=== PATIENT | female | born 1965 ===

== ENCOUNTER 2016-08-13 11:51 | Emergency (ER) | payer OTHER ==
[2016-08-13 11:59] VITALS: O2SAT 98
--- NOTE | 2016-08-13 13:05 | C.PDOC ---
History Of Present Illness 51 y/o female presents to ED with complaints of feeling depressed. Patient states for 1 month her and her were for infidelity and has now developed depressio, "bad thoughts",and loss of appetite. Patient says she thought she could overcome the depression by herself as she has overcame depression before but she couldn't and came to ED for help. Patient denies Suicidal ideation or Homicidal ideation, hallucinations or any other complaints at this time. Time Seen by Provider: 08/13/16 12:41 Chief Complaint (Nursing): Psychiatric Evaluation History Per: Patient History/Exam Limitations: no limitations Onset/Duration Of Symptoms: Days Current Symptoms Are (Timing): Still Present Suicide/Self Injury Attempted (Context): None Modifying Factor(s): None Associated Symptoms: Depression Past Medical History Reviewed: Historical Data, Nursing Documentation, Vital Signs Vital Signs: Last Vital Signs Temp 98.3 F 08/13/16 11:56 Pulse 109 H 08/13/16 11:56 Resp 20 08/13/16 11:56 BP 106/73 08/13/16 11:56 Pulse Ox 98 08/13/16 13:26 - Medical History PMH: Hypercholesterolemia Family History: States: No Known Family Hx - Social History Hx Alcohol Use: No Hx Substance Use: No - Immunization History Hx Tetanus Toxoid Vaccination: No Hx Influenza Vaccination: No Review Of Systems Except As Marked, All Systems Reviewed And Found Negative. Constitutional: Negative for: Fever Respiratory: Negative for: Shortness of Breath Gastrointestinal: Negative for: Nausea, Vomiting, Diarrhea Neurological: Negative for: Weakness, Headache Psych: Positive for: Depression. Negative for: Suicidal ideation Physical Exam - Physical Exam Appears: Non-toxic, Other (Emotional) Skin: Normal Color, Warm Head: Atraumatic, Normacephalic Oral Mucosa: Moist Extremity: Normal ROM, Capillary Refill (<2 seconds) Neurological/Psych: Oriented x3, Normal Speech, Other (Depressed ) ED Course And Treatment O2 Sat by Pulse Oximetry: 98 (RA) Pulse Ox Interpretation: Normal Medical Decision Making Medical Decision Making: Psych department called for evaluation on patient Disposition - Disposition Referrals: [facility] [Outside] Disposition: HOME/ ROUTINE Disposition Time: 14:53 Condition: FAIR Additional Instructions: Ms. Phillips, thank you for letting us take care of you today. Return to the ER if your symptoms worsen, or if any problems. Our Mental Health coordinator recommends that you follow up at the [facility]. Please follow the instructions she gave to you today. Forms: Gen Discharge Inst Yemeni, [employer] Connect (Yemeni) Print Language: BHUTANESE - POA Present On Arrival: None - Clinical Impression Clinical Impression: Major depressive disorder, single episode, unspecified - Scribe Statement The provider has reviewed the documentation as recorded by the Pearlibedmond Murillo All medical record entries made by the Pearlibedmond were at my direction and personally dictated by me. I have reviewed the chart and agree that the record accurately reflects my personal performance of the history, physical exam, medical decision making, and the department course for this patient. I have also personally directed, reviewed, and agree with the discharge instructions and disposition.
[2016-08-13 15:24] VITALS: BP 112/81; PULSE 88; RESP 18; TEMP 98.1
== END 2016-08-13 15:23 | disposition home or self-care (01) ==
LOC: C.ER 11:51
DX: F32.9 Major depressive disorder, single episode, unspecified (principal)

== ENCOUNTER 2017-03-09 11:12 | Emergency (ER) | payer MEDICAID, OTHER ==
[2017-03-09 11:33] VITALS: BMI 28.3
[2017-03-09] MEDS ORDERED: Aluminum Hydroxide/Magnesium Hydroxide Susp (30 mL) PO STA (12:29)
[2017-03-09] MEDS ORDERED: Belladonna-Phenobarbital PO STA (12:29)
[2017-03-09] MEDS ORDERED: Sodium Chloride 0.9% 1,000 ML IV ONE (12:29)
[2017-03-09] MEDS ORDERED: Alum-Mag Hydrox-Simethicone Susp (30 mL) ONE (12:37)
[2017-03-09] MEDS ORDERED: Belladonna-Phenobarbital ONE (12:37)
[2017-03-09] MEDS ORDERED: Sodium Chloride 0.9% 1,000 ML ONE (12:38)
[2017-03-09 12:57] LABS: SQUAMOUS EPITHIAL 6 /hpf (0-5); URINE BILIRUBIN NEGATIVE (NEGATIVE); URINE BLOOD NEGATIVE (NEGATIVE); URINE CLARITY Hazy (Clear); URINE COLOR Yellow (YELLOW); URINE GLUCOSE (UA) NORMAL (Normal); URINE LEUKOCYTE ESTERASE NEG Leu/uL (Negative); URINE NITRATE NEGATIVE (NEGATIVE); URINE PROTEIN 2+ mg/dL (NEGATIVE); URINE UROBILINOGEN NORMAL mg/dL (0.2-1.0)
[2017-03-09 12:57] LABS: ALB/GLOB RATIO 1.1 (1.0-2.1); ALBUMIN 4.1 g/dL (3.5-5.0); ALT/SGPT 21 U/L (9-52); AST/SGOT 24 U/L (14-36); BLOOD UREA NITROGEN 10 mg/dL (7-17); GFR AFRICAN-AMERICAN > 60; GFR NON-AFRICAN AMERICAN > 60; LIPASE 110 U/L (23-300)
[2017-03-09 13:01] LABS: BASO # 0.1 K/uL (0.0-0.2); BASO % 0.4 % (0.0-2.0); HEMOGLOBIN 12.1 g/dL (11.0-16.0); LYMPH # 1.5 K/uL (1.0-4.3); LYMPH % 8.4 % (20.0-40.0); MEAN CELL VOLUME 79.4 fL (81.0-99.0); MEAN CORPUSCULAR HEMOGLOBIN 26.6 pg (27.0-31.0); MEAN CORPUSCULAR HGB CONC 33.6 g/dL (33.0-37.0); MEAN PLATELET VOLUME 8.2 fL (7.2-11.7); MONO # 0.8 K/uL (0.0-0.8); MONO % 4.4 % (0.0-10.0); NEUT # 15.7 K/uL (1.8-7.0); NEUT % 86.8 % (50.0-75.0); PLATELET COUNT 447 K/uL (130-400); RBC 4.54 Mil/uL (3.80-5.20); RED CELL DISTRIBUTION WIDTH 13.3 % (11.5-14.5); WHITE BLOOD COUNT 18.1 K/uL (4.8-10.8)
[2017-03-09 13:09] LABS: B-TYPE NATRIURETIC PEPTIDE 162 pg/mL (0-900)
--- NOTE | 2017-03-09 13:11 | C.PDOC ---
History Of Present Illness 51 year old female with PMHx of lumbar scoliosis presents to the ED accompanied by her daughter for evaluation of abdominal pain that started today at approximately at 03:00 am. Patient states having multiple episodes of vomiting associated with chills, subjective fever. Patient denies back pain, weakness, numbness, diarrhea, constipation, cough, chills, fever. Time Seen by Provider: 03/09/17 12:12 Chief Complaint (Nursing): Abdominal Pain History Per: Patient, Family History/Exam Limitations: no limitations Onset/Duration Of Symptoms: Hrs Current Symptoms Are (Timing): Still Present Severity: Moderate Location Of Pain/Discomfort: Diffuse Radiation Of Pain To:: None Quality Of Discomfort: Other (Colic) Associated Symptoms: Vomiting. denies: Fever, Diarrhea, Back Pain, Constipation Exacerbating Factors: None Alleviating Factors: None Recent travel outside of the [place]: No Additional History Per: Patient Abnormal Vaginal Bleeding: No Past Medical History Reviewed: Historical Data, Nursing Documentation, Vital Signs Vital Signs: Last Vital Signs Temp 98.1 F 03/09/17 15:09 Pulse 68 03/09/17 15:09 Resp 20 03/09/17 15:09 BP 122/72 03/09/17 15:09 Pulse Ox 99 03/09/17 15:42 - Medical History PMH: Hypercholesterolemia Denies: Diabetes, Hepatitis, HIV, HTN, Seizures, Sexually Transmitted Disease Surgical History: No Surg Hx Family History: States: Unknown Family Hx - Social History Hx Alcohol Use: No Hx Substance Use: No - Immunization History Hx Tetanus Toxoid Vaccination: No Hx Influenza Vaccination: No Review Of Systems Constitutional: Negative for: Fever, Chills Respiratory: Negative for: Cough, Shortness of Breath Gastrointestinal: Positive for: Vomiting, Abdominal Pain. Negative for: Nausea , Diarrhea, Constipation Genitourinary: Negative for: Dysuria, Hematuria Skin: Negative for: Rash Neurological: Negative for: Weakness, Numbness, Headache Physical Exam - Physical Exam Appears: Non-toxic, In Acute Distress Skin: Normal Color, Warm, Dry Head: Atraumatic, Normacephalic Eye(s): bilateral: Normal Inspection Nose: No Discharge, No Deformity Oral Mucosa: Moist Neck: Normal ROM, Supple Chest: Symmetrical Cardiovascular: Rhythm Regular, No Murmur Respiratory: Normal Breath Sounds, No Rales, No Rhonchi, No Wheezing Gastrointestinal/Abdominal: Soft, Tenderness, Guarding, No Rebound Extremity: Normal ROM, No Pedal Edema, No Calf Tenderness, No Deformity, No Swelling Neurological/Psych: Oriented x3, Normal Speech, Normal Cognition ED Course And Treatment - Laboratory Results Result Diagrams: 03/09/17 12:36 03/09/17 12:36 O2 Sat by Pulse Oximetry: 99 (On RA) Pulse Ox Interpretation: Normal - Other Rad Obstructive series X-Ray X-Ray: Viewed By Me, Read By Radiologist Interpretation: PROCEDURE: Radiographs of the chest and abdomen (obstructive series). HISTORY: Abdominal pain. COMPARISON: No prior. TECHNIQUE: AP radiograph of the chest, with upright and supine radiographs of the abdomen. FINDINGS: CHEST: Lungs: The lungs are clear. Cardiovascular: Normal size heart. No pulmonary vascular congestion. Pleura: No pleural fluid. No pneumothorax. Other findings: None. ABDOMEN AND PELVIS: Bowel: There is moderate amount of stool in the ascending and proximal transverse colon. No evidence of mechanical obstruction. Free air: None. Bones: There is levoscoliosis in the lumbar spine. Other findings: None. IMPRESSION: Moderate stool burden in the ascending and proximal transverse colon. No evidence of bowel obstruction. Clear lungs. - CT Scan/US Abd/pelvis CT Other Rad Studies (CT/US): Read By Radiologist, Radiology Report Reviewed CT/US Interpretation: PROCEDURE: CT Abdomen and Pelvis without intravenous contrast. HISTORY: abd pain. COMPARISON: None. TECHNIQUE: Technique. Contrast Dose: None. Radiation dose: Total exam DLP = 1045 mGy-cm. This CT exam was performed using one or more of the following dose reduction techniques : Automated exposure control, adjustment of the mA and/or kV according to patient size, and/or use of iterative reconstruction technique. FINDINGS: LOWER THORAX: Left basal calcified granuloma. Partially visualized coronary artery calcifications. LIVER: Unremarkable. No gross lesion or ductal dilatation. GALLBLADDER AND BILE DUCTS: Distended gallbladder. No gross gallstones. Common bile duct a pancreatic head appears prominent. PANCREAS: Common bile duct prominence - pancreatic head. SPLEEN: Unremarkable. ADRENALS : Unremarkable. No mass. KIDNEYS AND URETERS: 5 to 6 mm left lower renal pole calculus nonobstructing. No hydronephrosis. No gross masses noted on this noncontrast study. VASCULATURE: Short segmental atherosclerotic vascular ossifications -descending abdominal aorta. . No aortic aneurysm. BOWEL: Unremarkable. No obstruction. No gross mural thickening. APPENDIX: Unremarkable. Normal appendix. PERITONEUM: Unremarkable. No free fluid. No free air. LYMPH NODES: Unremarkable. No enlarged lymph nodes. BLADDER: Unremarkable. REPRODUCTIVE: Unremarkable. BONES: Developmental variation - inferior lumbar block vertebrae -sacral cysts digested. OTHER FINDINGS: None. IMPRESSION: Left lower renal pole nonobstructing 5 to 6 mm calculus. No hydronephrosis no hydroureter. Distended gallbladder. Common bile duct prominence pancreatic head. Evaluation regarding any potential pancreatic masses -no gross appreciated. No gross calculi in common bile duct appreciated. Follow-up recommended -initial right upper quadrant ultrasound attention to gallbladder common bile duct and pancreatic head recommended. Additional CT pancreatic protocol subsequent imaging -to be determined Medical Decision Making Medical Decision Making: Impression : Abdominal pain Plan: * CT abd/pelvis * Labs * Obstructive series X-ray * UA * 1 yab PO * Maalox 30 ml PO * Morphine 2 mg IVP * Pepcid 20 mg IVP * IV fluids Disposition Counseled Patient/Family Regarding: Studies Performed, Need For Followup, Rx Given - Disposition Disposition: HOME/ ROUTINE Disposition Time: 15:14 Condition: STABLE Prescriptions: Docusate Sodium [Colace] 100 mg PO BID #20 capsule Phosphate Enema [Fleet Enema 135 Ml] 135 ml RC DAILY #2 nma Psyllium Husk/Aspartame [Metamucil Fiber Singles Packet] 3.4 gm PO DAILY #10 powd.pack Instructions: Constipation (ED) Forms: [facility] (Czech), Gen Discharge Inst Czech - POA Present On Arrival: None - Clinical Impression Clinical Impression: Constipation - Scribe Statement The provider has reviewed the documentation as recorded by the Scribe Fletcher Hernandez All medical record entries made by the Scribe were at my direction and personally dictated by me. I have reviewed the chart and agree that the record accurately reflects my personal performance of the history, physical exam, medical decision making, and the department course for this patient. I have also personally directed, reviewed, and agree with the discharge instructions and disposition.
[2017-03-09 13:21] LABS: BANDS 2 % (0-2); LYMPHOCYTE 6 % (20-40); MONOCYTE 2 % (0-10); NEUTROPHIL 90 % (50-75); TOTAL CELLS COUNTED 100
[2017-03-09 13:22] LABS: PLATELET ESTIMATE SLIGHTLY INCREASED (NORMAL); STOMATOCYTES SLIGHT
--- NOTE | 2017-03-09 13:35 | CT ---
PROCEDURE: CT Abdomen and Pelvis without intravenous contrast HISTORY: abd pain COMPARISON: None. TECHNIQUE: Technique. Contrast Dose: None Radiation dose: Total exam DLP = 1045 mGy-cm. This CT exam was performed using one or more of the following dose reduction techniques: Automated exposure control, adjustment of the mA and/or kV according to patient size, and/or use of iterative reconstruction technique. FINDINGS: LOWER THORAX: Left basal calcified granuloma. Partially visualized coronary artery calcifications LIVER: Unremarkable. No gross lesion or ductal dilatation. GALLBLADDER AND BILE DUCTS: Distended gallbladder. No gross gallstones. Common bile duct a pancreatic head appears prominent. PANCREAS: Common bile duct prominence - pancreatic head. SPLEEN: Unremarkable. ADRENALS: Unremarkable. No mass. KIDNEYS AND URETERS: 5 to 6 mm left lower renal pole calculus nonobstructing. No hydronephrosis. No gross masses noted on this noncontrast study. VASCULATURE: Short segmental atherosclerotic vascular ossifications -descending abdominal aorta. . No aortic aneurysm. BOWEL: Unremarkable. No obstruction. No gross mural thickening. APPENDIX: Unremarkable. Normal appendix. PERITONEUM: Unremarkable. No free fluid. No free air. LYMPH NODES: Unremarkable. No enlarged lymph nodes. BLADDER: Unremarkable. REPRODUCTIVE: Unremarkable. BONES: Developmental variation -inferior lumbar block vertebrae -sacral cysts digested OTHER FINDINGS: None. IMPRESSION: Left lower renal pole nonobstructing 5 to 6 mm calculus. No hydronephrosis no hydroureter Distended gallbladder. Common bile duct prominence pancreatic head. Evaluation regarding any potential pancreatic masses -no gross appreciated. No gross calculi in common bile duct appreciated. Follow-up recommended -initial right upper quadrant ultrasound attention to gallbladder common bile duct and pancreatic head recommended. Additional CT pancreatic protocol subsequent imaging -to be determined
--- NOTE | 2017-03-09 13:43 | RAD ---
PROCEDURE: Radiographs of the chest and abdomen (obstructive series) HISTORY: Abdominal pain COMPARISON: No prior. TECHNIQUE: AP radiograph of the chest, with upright and supine radiographs of the abdomen. FINDINGS: CHEST: Lungs: The lungs are clear. Cardiovascular: Normal size heart. No pulmonary vascular congestion. Pleura: No pleural fluid. No pneumothorax. Other findings: None. ABDOMEN AND PELVIS: Bowel: There is moderate amount of stool in the ascending and proximal transverse colon. No evidence of mechanical obstruction. Free air: None. Bones: There is levoscoliosis in the lumbar spine. Other findings: None. IMPRESSION: Moderate stool burden in the ascending and proximal transverse colon. No evidence of bowel obstruction. Clear lungs.
[2017-03-09 15:10] VITALS: BP 122/72; PULSE 68; RESP 20; TEMP 98.1
[2017-03-09 15:17] VITALS: O2SAT 99
== END 2017-03-09 15:40 | disposition home or self-care (01) ==
LOC: C.ER 11:12
DX: K59.00 Constipation, unspecified (principal); E78.00 Pure hypercholesterolemia, unspecified
CPT/HCPCS: 74022; 74176; 80053; 81001; 83690; 83880; 84484; 85025; 96361; 96374; 96375; 99284; J1885; J2270; J2405; J7040

== ENCOUNTER 2017-03-15 13:09 | Inpatient (IN) | payer OTHER ==
[2017-03-15 13:09] VITALS: BMI 28.3
[2017-03-15] MEDS ORDERED: Sodium Chloride 0.9% 1,000 ML IV ONE (15:46)
[2017-03-15] MEDS ORDERED: Sodium Chloride 0.9% 1,000 ML ONE (16:01)
[2017-03-15 16:03] LABS: BASO # 0.1 K/uL (0.0-0.2); BASO % 0.8 % (0.0-2.0); EOS # 0.2 K/uL (0.0-0.7); EOS % 1.5 % (0.0-4.0); HEMOGLOBIN 11.7 g/dL (11.0-16.0); LYMPH # 3.2 K/uL (1.0-4.3); LYMPH % 25.2 % (20.0-40.0); MEAN CELL VOLUME 80.4 fL (81.0-99.0); MEAN CORPUSCULAR HEMOGLOBIN 26.6 pg (27.0-31.0); MEAN CORPUSCULAR HGB CONC 33.1 g/dL (33.0-37.0); MEAN PLATELET VOLUME 7.5 fL (7.2-11.7); MONO # 0.9 K/uL (0.0-0.8); MONO % 7.4 % (0.0-10.0); NEUT # 8.3 K/uL (1.8-7.0); NEUT % 65.1 % (50.0-75.0); RBC 4.39 Mil/uL (3.80-5.20); WHITE BLOOD COUNT 12.8 K/uL (4.8-10.8)
[2017-03-15 16:14] LABS: INR 1.2; PROTHROMBIN TIME 13.1 SECONDS (9.7-12.2)
--- NOTE | 2017-03-15 16:17 | C.PDOC ---
History Of Present Illness 51 y/o female, sent by Dr. Woods, presents to the ER for right upper quadrant abdominal pain. Patient states that she was recently seen here and and she was discharged with CT which showed a distended galbladder. Patient denies having any fever, nausea, and vomiting. Time Seen by Provider: 03/15/17 15:29 Chief Complaint (Nursing): Abdominal Pain History Per: Patient History/Exam Limitations: no limitations Onset/Duration Of Symptoms: Days Current Symptoms Are (Timing): Still Present Severity: Moderate Past Medical History Reviewed: Historical Data, Nursing Documentation, Vital Signs Vital Signs: Last Vital Signs Temp 98.7 F 03/15/17 14:01 Pulse 83 03/15/17 14:01 Resp 18 03/15/17 14:01 BP 109/72 03/15/17 14:01 Pulse Ox 99 03/15/17 16:23 - Medical History PMH: Hypercholesterolemia Denies: Diabetes, Hepatitis, HIV, HTN, Seizures, Sexually Transmitted Disease Surgical History: No Surg Hx Family History: States: No Known Family Hx - Social History Hx Alcohol Use: No Hx Substance Use: No - Immunization History Hx Tetanus Toxoid Vaccination: No Hx Influenza Vaccination: No Review Of Systems Except As Marked, All Systems Reviewed And Found Negative. Constitutional: Negative for: Fever, Chills Gastrointestinal: Positive for: Abdominal Pain. Negative for: Nausea, Vomiting Physical Exam - Physical Exam Appears: Non-toxic, No Acute Distress Skin: Normal Color, Warm Head: Atraumatic, Normacephalic Eye(s): bilateral: Normal Inspection, PERRL Nose: Normal Oral Mucosa: Moist Neck: Supple Chest: Symmetrical Cardiovascular: Rhythm Regular Respiratory: Normal Breath Sounds, No Accessory Muscle Use, No Rales, No Rhonchi , No Wheezing Gastrointestinal/Abdominal: Normal Exam, Soft, Tenderness (RUQ tenderness), No Guarding, No Rebound Extremity: Normal ROM Neurological/Psych: Oriented x3, Normal Speech, Normal Cognition, Normal Motor, Normal Sensation ED Course And Treatment - Laboratory Results Result Diagrams: 03/15/17 15:54 03/15/17 15:54 O2 Sat by Pulse Oximetry: 99 (RA) Pulse Ox Interpretation: Normal Medical Decision Making Medical Decision Making: Impression: RUQ Abdominal Pain-suspect cholecystitis - Plan: --Labs --Urinalysis --US-Abdomen pt reassesed: pt with us shows possibl echole. antibiotics ordered, dr wiseman accepts resident assistant cna bedside request or tommorow. Disposition - Disposition Disposition: HOSPITALIZED Disposition Time: 18:29 Condition: STABLE - Clinical Impression Clinical Impression: Cholecystitis, UTI (urinary tract infection) - Scribe Statement The provider has reviewed the documentation as recorded by the Scribe Patricia Dada Provider Attestation: All medical record entries made by the Scribe were at my direction and personally dictated by me. I have reviewed the chart and agree that the record accurately reflects my personal performance of the history, physical exam, medical decision making, and the department course for this patient. I have also personally directed, reviewed, and agree with the discharge instructions and disposition. Decision To Admit - Pt Status Changed To: Hospital Disposition Of: Inpatient - Admit Certification Admit to Inpatient:: After my assessment, the patient will require hospitalization for at least two midnights. This is because of the severity of symptoms shown, intensity of services needed, and/or the medical risk in this patient being treated as an outpatient. - InPatient: Physician Admission Certification:: needs iv anbitiocsi or for myra - . Bed Request Type: Regular Admitting Physician: Ciaran Wiseman Jr. Patient Diagnosis: Cholecystitis, UTI (urinary tract infection)
[2017-03-15 16:20] LABS: ALBUMIN 4.2 g/dL (3.5-5.0); ALT/SGPT 23 U/L (9-52); AST/SGOT 16 U/L (14-36); BILIRUBIN,DIRECT 0.3 mg/dL (0.0-0.4); BLOOD UREA NITROGEN 8 mg/dL (7-17); CALCIUM 8.9 mg/dl (8.6-10.4); GFR AFRICAN-AMERICAN > 60; GFR NON-AFRICAN AMERICAN > 60; HCG,QUALITATIVE URINE NEGATIVE (NEGATIVE); LIPASE 110 U/L (23-300)
[2017-03-15 16:22] LABS: SQUAMOUS EPITHIAL 10 /hpf (0-5); URINE BILIRUBIN NEGATIVE (NEGATIVE); URINE BLOOD NEGATIVE (NEGATIVE); URINE CLARITY Hazy (Clear); URINE COLOR Yellow (YELLOW); URINE GLUCOSE (UA) NORMAL (Normal); URINE LEUKOCYTE ESTERASE NEG Leu/uL (Negative); URINE NITRATE POSITIVE (NEGATIVE); URINE PROTEIN NEGATIVE (NEGATIVE); URINE UROBILINOGEN NORMAL mg/dL (0.2-1.0)
[2017-03-15 16:31] LABS: URINE BACTERIA MANY (<OCC)
[2017-03-15] MEDS ORDERED: cefTRIAXone 2 GM in Sodium Chloride 0.9% 100 ML IVPB STA (16:31)
--- NOTE | 2017-03-15 16:50 | US ---
HISTORY: abd pain COMPARISON: CT abdomen and pelvis without contrast performed 03/09/17 TECHNIQUE: Sonographic evaluation of the abdomen. FINDINGS: LIVER: Measures 13.2 cm in sagittal dimension and appears unremarkable. No focal hepatic mass identified. The main portal vein appears patent with normal directional flow. No intrahepatic bile duct dilatation. GALLBLADDER: Immobile gallstone in the gallbladder neck. No gallbladder wall thickening. Positive sonographic Rollins's sign as assessed by the project financial analyst. COMMON BILE DUCT: Measures 6 mm. PANCREAS: Not well visualized. RIGHT KIDNEY: Measures 11.2 x 4.7 x 4.3cm. No obstructing calculus or hydronephrosis identified. LEFT KIDNEY: Measures lump which should by 5.8 x 5.4cm. No obstructing calculus or hydronephrosis identified. Caps 7 mm nonobstructing calculus. SPLEEN: Measures approximately 9.0 cm AORTA: Limited views appear unremarkable. IVC: Limited views appear unremarkable. OTHER FINDINGS: None. IMPRESSION: Evidence of immobile gallstone at the gallbladder neck. Positive sonographic Rollins's sign as assessed by the project financial analyst. No evidence of gallbladder wall thickening or pericholecystic edema. Correlate clinically for possibility of cholecystitis. Nonobstructing 7 mm left renal calculus.
--- NOTE | 2017-03-15 19:06 | CP.PCM.CON ---
History of Present Illness - History of Present Illness History of Present Illness: Surgery consult. The daughter is present for the conversation. Patient is a 51 y.o. female ho cholelithiasis who presents to the ED with RUQ pain. She states that it began 7 days ago, and at that time, she was vomiting yellow-green fluid, with no blood. She was admitted to [facility] and worked up for hardened stool causing obstruction. she was given morphine and stool softeners and discharged. Since then, she has had increasing RUQ pain and admitted herself to the ED tonight. She states that eating makes the pain worse and describes her pain as dull and achy. She admits to traveling to [facility] 1 year ago, with no issues after coming back. She denies any sick contacts. Patient admits to lethargy, headache, mild palpitations, mild dyspnea, naseua and constipation. She also has TTP on the RUQ of the abdomen. Imaging shows a thickened gallbladder wall and gallstones present. PMH:Hypercholesteremia, back pain, MDD and Anxiety PSH: in 1994 and 1988 Hosp:Left breast cyst FNA in 2006, self-admitted herself to [facility] [place] last July Social hx:Denies alcohol and tabacoo. Lives with 2 daughters Medications:Naproxen 500 mg q2d, tylenol 500 mg q2d, Trazadone 100 mg qd, Buspirone 50 mg qd Family hx:History of gallstones, diabetes Allergies: none Review of Systems - Constitutional Constitutional: As Per HPI, Fever, Headache, Weakness. absent: Chills - Cardiovascular Cardiovascular: As Per HPI, Dyspnea. absent: Chest Pain, Lightheadedness, Palpitations - Respiratory Respiratory: As Per HPI. absent: Cough, Dyspnea - Gastrointestinal Gastrointestinal: As Per HPI, Abdominal Pain, Constipation, Nausea, Vomiting. absent: Diarrhea - Genitourinary Genitourinary: As Per HPI. absent: Difficulty Urinating, Dysuria Past Patient History - Past Social History Smoking Status: Never Smoked - CARDIAC Hx Hypercholesterolemia: Yes Hx Hypertension: No - PULMONARY Hx Tuberculosis: No - NEUROLOGICAL Hx Seizures: No - HEMATOLOGICAL/ONCOLOGICAL Hx Human Immunodeficiency Virus (HIV): No - MUSCULOSKELETAL/RHEUMATOLOGICAL Hx Back Pain: Yes - GENITOURINARY/GYNECOLOGICAL Hx Sexually Transmitted Disorders: No - PSYCHIATRIC Hx Substance Use: No - SURGICAL HISTORY Hx Section: Yes (x 2) - ANESTHESIA Hx Anesthesia: Yes Hx Anesthesia Reactions: No Meds Allergies/Adverse Reactions: Allergies Allergy/AdvReac Type Severity Reaction Status Date / Time No Known Allergies Allergy Verified 03/09/17 11:32 Physical Exam - Head Exam Head Exam: NORMAL INSPECTION - Eye Exam Eye Exam: Normal appearance - Respiratory Exam Respiratory Exam: NORMAL BREATHING PATTERN - Cardiovascular Exam Cardiovascular Exam: REGULAR RHYTHM, RRR, +S1, +S2 - GI/Abdominal Exam GI & Abdominal Exam: Normal Bowel Sounds, Tenderness. absent: Distended, Firm, Guarding, Rebound, Rigid Additional comments: TTP in RUQ. illicits pain Results - Vital Signs Recent Vital Signs: Last Vital Signs Temp 98.4 F 03/15/17 18:51 Pulse 95 H 03/15/17 18:51 Resp 18 03/15/17 18:51 BP 111/68 03/15/17 18:51 Pulse Ox 98 03/15/17 18:51 - Labs Result Diagrams: 03/15/17 15:54 03/15/17 15:54 Labs: Laboratory Results - last 24 hr 03/15/17 03/15/17 03/15/17 15:54 15:54 15:54 WBC 12.8 H RBC 4.39 Hgb 11.7 Hct 35.3 MCV 80.4 L MCH 26.6 L MCHC 33.1 RDW 13.0 Plt Count 534 H MPV 7.5 Neut % (Auto) 65.1 Lymph % (Auto) 25.2 Edwards % (Auto) 7.4 Eos % (Auto) 1.5 Baso % (Auto) 0.8 Neut # 8.3 H Lymph # 3.2 Edwards # 0.9 H Eos # 0.2 Baso # 0.1 PT 13.1 H INR 1.2 APTT 32 Sodium Potassium Chloride Carbon Dioxide Anion Gap BUN Creatinine Est GFR ( Amer) Est GFR (Non-Af Amer) Random Glucose Calcium Total Bilirubin Direct Bilirubin AST ALT Alkaline Phosphatase Total Protein Albumin Globulin Albumin/Globulin Ratio Lipase Urine Color Yellow Urine Clarity Hazy Urine pH 8.0 Ur Specific Hamilton 1.014 Urine Protein Negative Urine Glucose (UA) Normal Urine Ketones Trace Urine Blood Negative Urine Nitrate Positive H Urine Bilirubin Negative Urine Urobilinogen Normal Ur Leukocyte Esterase Neg Urine WBC (Auto) 1 Urine RBC (Auto) 3 Ur Squamous Epith Cells 10 H Urine Bacteria Many H Urine HCG, Qual Negative 03/15/17 15:54 WBC RBC Hgb Hct MCV MCH MCHC RDW Plt Count MPV Neut % (Auto) Lymph % (Auto) Edwards % (Auto) Eos % (Auto) Baso % (Auto) Neut # Lymph # Edwards # Eos # Baso # PT INR APTT Sodium 131 L Potassium 3.8 Chloride 95 L Carbon Dioxide 26 Anion Gap 14 BUN 8 Creatinine 0.5 L Est GFR ( Amer) > 60 Est GFR (Non-Af Amer) > 60 Random Glucose 104 Calcium 8.9 Total Bilirubin 0.5 Direct Bilirubin 0.3 AST 16 ALT 23 Alkaline Phosphatase 76 Total Protein 8.5 H Albumin 4.2 Globulin 4.3 H Albumin/Globulin Ratio 1.0 Lipase 110 Urine Color Urine Clarity Urine pH Ur Specific Hamilton Urine Protein Urine Glucose (UA) Urine Ketones Urine Blood Urine Nitrate Urine Bilirubin Urine Urobilinogen Ur Leukocyte Esterase Urine WBC (Auto) Urine RBC (Auto) Ur Squamous Epith Cells Urine Bacteria Urine HCG, Qual Assessment & Plan - Assessment and Plan (Free Text) Assessment: Symptomatic cholelithiasis vs acute cholecystitis Plan: OR tomorrow NPO past midnight IV fluids Dilaudid for pain Ondansetron for n/v Tylenol for fever Ceftriaxone for abx prophylaxis DW with Dr. Pat
[2017-03-15] MEDS: Lactated Ringer's 1,000 ML IV SCH (19:58)
[2017-03-15] MEDS ORDERED: Pneumococcal 23-Valent Vaccine IM ONE (20:30)
--- NOTE | 2017-03-15 21:08 | CP.PCM.HP ---
History of Present Illness - History of Present Illness History of Present Illness: H&P for Dr. Cruz's Service: CC: " My upper belly hurts" HPI: Patient is a 51 year old female, with PMHx of cholelithiasis, anxiety, depression, DDD, and scoliosis, who presents to [facility] ED c/o RUQ pain. Patient states that pain began one week ago, starting in her epigastric area than spreading to her RUQ. At that time, she vomited yellow-green fluid "three to four times with no blood." When the pain did not cease she came to [facility] ED on 03/09/17. Pt reports having CT which showed "distended gallbladder" and was diagnosed with constipation, given morphine and stool softeners, and discharged. Since discharge, pt has had worsening non-radiating RUQ pain, "10/10 " in severity, that skedmond describes as a "twisting sensation" that "comes and goes." Pain is made worse with eating, especially fatty foods, but now all foods are intolerable. Patient denies any sick contacts. Patient denies having any fever, nausea, and vomiting. PMH: Hypercholesteremia, back pain, MDD and Anxiety PSH: in 1994 and 1988, Left breast cyst fluid extraction 2006 Social hx:Denies alcohol and tobacoo. Lives with 2 daughters. Unemployed. Medications:Naproxen 500 mg q2d, tylenol 500 mg q2d, Trazadone 100 mg qd, Buspirone 50 mg qd Family hx:History of gallstones, diabetes Allergies: none Present on Admission - Present on Admission Any Indicators Present on Admission: No History of DVT/PE: No History of Uncontrolled Diabetes: No Review of Systems - Constitutional Constitutional: absent: Chills, Fever - EENT Eyes: absent: Change in Vision Ears: absent: Ear Discharge, Ear Pain Nose/Mouth/Throat: absent: Nasal Congestion, Dry Mouth, Sore Throat - Cardiovascular Cardiovascular: absent: Chest Pain, Dyspnea, Leg Edema - Respiratory Respiratory: absent: Cough, Dyspnea - Gastrointestinal Gastrointestinal: Abdominal Pain (RUQ), Bloating, Constipation. absent: Diarrhea, Heartburn, Nausea, Vomiting - Genitourinary Genitourinary: absent: Dysuria - Musculoskeletal Musculoskeletal: absent: Back Pain, Numbness, Tingling - Integumentary Integumentary: absent: Dry Skin - Neurological Neurological: absent: Tingling, Weakness - Psychiatric Psychiatric: Anxiety, Depression - Endocrine Endocrine: Fatigue. absent: Palpitations Past Patient History - Past Social History Smoking Status: Never Smoked - CARDIAC Hx Hypercholesterolemia: No Hx Hypertension: No - PULMONARY Hx Tuberculosis: No - NEUROLOGICAL Hx Seizures: No - HEMATOLOGICAL/ONCOLOGICAL Hx Human Immunodeficiency Virus (HIV): No - MUSCULOSKELETAL/RHEUMATOLOGICAL Hx Arthritis: Yes Hx Back Pain: Yes (Lumbar Scoliosis) Hx Falls: Yes () Hx Herniated Disk: Yes - GENITOURINARY/GYNECOLOGICAL Hx Sexually Transmitted Disorders: No - PSYCHIATRIC Hx Anxiety: Yes Hx Depression: Yes (pt is on medication) Hx Substance Use: No - SURGICAL HISTORY Hx Section: Yes (x 2) Other/Comment: Left breast cyst fluid extraction 2006 - ANESTHESIA Hx Anesthesia: Yes Hx Anesthesia Reactions: No Hx Malignant Hyperthermia: No Has any member of the family had a problem w/ anesthesia?: No Meds Allergies/Adverse Reactions: Allergies Allergy/AdvReac Type Severity Reaction Status Date / Time No Known Allergies Allergy Verified 03/09/17 11:32 Physical Exam - Constitutional Appears: Non-toxic, No Acute Distress - Head Exam Head Exam: ATRAUMATIC, NORMAL INSPECTION - Eye Exam Eye Exam: EOMI, Normal appearance - ENT Exam ENT Exam: Mucous Membranes Moist - Respiratory Exam Respiratory Exam: Clear to Auscultation Bilateral, NORMAL BREATHING PATTERN. absent: Rales, Rhonchi, Wheezes - Cardiovascular Exam Cardiovascular Exam: REGULAR RHYTHM, +S1, +S2 - GI/Abdominal Exam GI & Abdominal Exam: Normal Bowel Sounds, Soft, Tenderness (RUQ pain). absent: Guarding, Organomegaly, Rebound Additional comments: aguillon sign positive - Extremities Exam Extremities exam: Positive for: normal inspection. Negative for: pedal edema - Back Exam Back exam: absent: CVA tenderness (L), CVA tenderness (R) - Neurological Exam Neurological exam: Alert, CN II-XII Intact, Oriented x3 - Psychiatric Exam Psychiatric exam: Normal Affect, Normal Mood - Skin Skin Exam: Dry, Normal Color, Warm Results - Vital Signs Recent Vital Signs: Last Vital Signs Temp 97.5 F L 03/15/17 19:37 Pulse 74 03/15/17 19:37 Resp 20 03/15/17 19:37 BP 93/58 L 01/22/18 19:37 Pulse Ox 99 03/15/17 19:37 - Labs Result Diagrams: 03/15/17 15:54 03/15/17 15:54 Labs: Laboratory Results - last 24 hr 03/15/17 03/15/17 03/15/17 15:54 15:54 15:54 WBC 12.8 H RBC 4.39 Hgb 11.7 Hct 35.3 MCV 80.4 L MCH 26.6 L MCHC 33.1 RDW 13.0 Plt Count 534 H MPV 7.5 Neut % (Auto) 65.1 Lymph % (Auto) 25.2 [place] % (Auto) 7.4 Eos % (Auto) 1.5 Baso % (Auto) 0.8 Neut # 8.3 H Lymph # 3.2 [place] # 0.9 H Eos # 0.2 Baso # 0.1 PT 13.1 H INR 1.2 APTT 32 Sodium Potassium Chloride Carbon Dioxide Anion Gap BUN Creatinine Est GFR ( Amer) Est GFR (Non-Af Amer) Random Glucose Calcium Total Bilirubin Direct Bilirubin AST ALT Alkaline Phosphatase Total Protein Albumin Globulin Albumin/Globulin Ratio Lipase Urine Color Yellow Urine Clarity Hazy Urine pH 8.0 Ur Specific [place] 1.014 Urine Protein Negative Urine Glucose (UA) Normal Urine Ketones Trace Urine Blood Negative Urine Nitrate Positive H Urine Bilirubin Negative Urine Urobilinogen Normal Ur Leukocyte Esterase Neg Urine WBC (Auto) 1 Urine RBC (Auto) 3 Ur Squamous Epith Cells 10 H Urine Bacteria Many H Urine HCG, Qual Negative 03/15/17 15:54 WBC RBC Hgb Hct MCV MCH MCHC RDW Plt Count MPV Neut % (Auto) Lymph % (Auto) [place] % (Auto) Eos % (Auto) Baso % (Auto) Neut # Lymph # [place] # Eos # Baso # PT INR APTT Sodium 131 L Potassium 3.8 Chloride 95 L Carbon Dioxide 26 Anion Gap 14 BUN 8 Creatinine 0.5 L Est GFR ( Amer) > 60 Est GFR (Non-Af Amer) > 60 Random Glucose 104 Calcium 8.9 Total Bilirubin 0.5 Direct Bilirubin 0.3 AST 16 ALT 23 Alkaline Phosphatase 76 Total Protein 8.5 H Albumin 4.2 Globulin 4.3 H Albumin/Globulin Ratio 1.0 Lipase 110 Urine Color Urine Clarity Urine pH Ur Specific [place] Urine Protein Urine Glucose (UA) Urine Ketones Urine Blood Urine Nitrate Urine Bilirubin Urine Urobilinogen Ur Leukocyte Esterase Urine WBC (Auto) Urine RBC (Auto) Ur Squamous Epith Cells Urine Bacteria Urine HCG, Qual Assessment & Plan - Assessment and Plan (Free Text) Plan: Cholecystitis Admit to med/surg WBC 12.8, no left shift, bandemia NPO diet in AM Gen surgery consult, Dr. Pat - pt for Cholecystectomy in AM US ABD (03/15/17): Immobile gallstone at GB neck. Positive sono aguillon sign. No GB wall thickening or pericholecystic edema. (see full report) From prior admission: CT A/P (03/09/17) Distended gallbladder. Common bile duct prominence pancreatic head. Evaluation regarding any potential pancreatic masses -no gross appreciated. No gross calculi in common bile duct appreciated. Follow-up recommended -initial right upper quadrant ultrasound attention to gallbladder common bile duct and pancreatic head recommended. Additional CT pancreatic protocol subsequent imaging -to be determined Tylenol 975mg PO Q6H PRN (fever) Dilaudid 0.5mg IV Q4H PRN (moderate pain) LR @ 120mls/hr Flagyl 500mg IV Q8H IV (Start 03/15/17) Ceftriaxone 1gm Q12H IV (Start 03/15/17) Zofran 4mg IV Q4H PRN Pre-op labs: Coags WNL f/u EKG, Chest x-ray Abnormal UA UA (03/15/17): Positive nitrate, many bacteria, Sq epithelial Pt on ceftriaxone for cholecystitis f/u urine culture Thrombocytosis Mild 534 on presentation, believed reactionary to infection Monitor Depression Continue home Trazadone Anxiety continue Home Buspar Degenerative disc disease/Scoliosis Pt on dilaudid for abd pain Monitor Prophylaxis Hold anticoagulation as pt pre-op SCDs Protonix 40mg IV daily Emerson Cerrato PGY-[address] Cruz
[2017-03-16] MEDS: metroNIDAZOLE IV 500 mg/100 ml 500 MG/100 ML BAG IVPB SCH ×3 (00:52→17:34)
[2017-03-16] MEDS: Lactated Ringer's 1,000 ML IV SCH ×4 (04:13→21:58)
[2017-03-16 06:39] LABS: BASO # 0.1 K/uL (0.0-0.2); BASO % 0.9 % (0.0-2.0); EOS # 0.3 K/uL (0.0-0.7); EOS % 2.9 % (0.0-4.0); HEMOGLOBIN 9.9 g/dL (11.0-16.0); LYMPH # 2.3 K/uL (1.0-4.3); LYMPH % 23.2 % (20.0-40.0); MEAN CELL VOLUME 80.8 fL (81.0-99.0); MEAN CORPUSCULAR HEMOGLOBIN 26.7 pg (27.0-31.0); MEAN PLATELET VOLUME 7.3 fL (7.2-11.7); MONO # 0.8 K/uL (0.0-0.8); MONO % 7.9 % (0.0-10.0); NEUT # 6.4 K/uL (1.8-7.0); NEUT % 65.1 % (50.0-75.0); RBC 3.71 Mil/uL (3.80-5.20); RED CELL DISTRIBUTION WIDTH 13.1 % (11.5-14.5); WHITE BLOOD COUNT 9.8 K/uL (4.8-10.8)
[2017-03-16 07:16] LABS: ALB/GLOB RATIO 0.9 (1.0-2.1); ALBUMIN 3.2 g/dL (3.5-5.0); ALT/SGPT 22 U/L (9-52); AST/SGOT 22 U/L (14-36); BLOOD UREA NITROGEN 9 mg/dL (7-17); CALCIUM 8.6 mg/dl (8.6-10.4); GFR AFRICAN-AMERICAN > 60; GFR NON-AFRICAN AMERICAN > 60; MAGNESIUM 1.7 mg/dL (1.6-2.3)
--- NOTE | 2017-03-16 08:34 | RAD ---
HISTORY: pre-op COMPARISON: No prior. FINDINGS: LUNGS: The lungs are well inflated and clear. PLEURA: No significant pleural effusion identified, no pneumothorax apparent. CARDIOVASCULAR: Normal. OSSEOUS STRUCTURES: No significant abnormalities. VISUALIZED UPPER ABDOMEN: Normal. OTHER FINDINGS: None. IMPRESSION: No active pulmonary disease.
[2017-03-16] MEDS ORDERED: Lidocaine 1% Inj (20ml) ONE (13:28)
[2017-03-16] MEDS ORDERED: Iohexol 240 (50 ml) ONE (13:28)
--- NOTE | 2017-03-16 14:42 | CP.PCM.PN ---
<Jannie Garner - Last Filed: 03/16/17 15:01> Subjective - Date & Time of Evaluation Date of Evaluation: 03/16/17 Time of Evaluation: 14:39 - Subjective Subjective: Medicine progress note for Dr. Cruz's service Patient was seen and examined at bedside in no acute distress. Patient's two daughters were at bedside. Patient reports having RUQ pain, but the pain medication has helped. Patient denies chest pain, shortness of breath, nausea, vomiting, fevers, headaches, and leg pain/swelling. Objective - Vital Signs/Intake and Output Vital Signs (last 24 hours): Temp Pulse Resp BP Pulse Ox 98.1 F 62 20 98/62 L 98 03/16/17 08:12 03/16/17 08:12 03/16/17 08:12 03/16/17 08:12 03/16/17 08:12 Intake and Output: 03/16/17 03/16/17 06:59 18:59 Intake Total 1670 Balance 1670 - Medications Medications: Current Medications Acetaminophen (Tylenol 325mg Tab) 975 mg PO Q6 PRN PRN Reason: Fever >100.4 F Hydromorphone HCl (Dilaudid) 0.5 mg IVP Q4H PRN PRN Reason: Pain, severe (8-10) Lactated Ringer's (Lactated Ringer's) 1,000 mls @ 120 mls/hr IV .Q8H20M [facility] Last Admin: 03/16/17 13:28 Dose: Not Given Ceftriaxone Sodium 1 gm/ (Sodium Chloride) 100 mls @ 100 mls/hr IVPB Q12H [facility] Last Admin: 03/16/17 04:12 Dose: 100 mls/hr Metronidazole (Flagyl) 500 mg in 100 mls @ 100 mls/hr IVPB Q8H [facility] Last Admin: 03/16/17 10:00 Dose: 100 mls/hr Ondansetron HCl (Zofran Inj) 4 mg IVP Q4H PRN PRN Reason: Nausea/Vomiting Pantoprazole Sodium (Protonix Inj) 40 mg IVP DAILY [facility] Last Admin: 03/16/17 10:14 Dose: 40 mg Pneumococcal Polyvalent Vaccine (Pneumovax 23 Vaccine) 0.5 ml IM .ONCE ONE Stop: 03/17/17 10:01 Trazodone HCl (Desyrel) 100 mg PO HS [facility] Last Admin: 03/15/17 22:32 Dose: 100 mg - Labs Labs: 03/16/17 06:34 03/16/17 06:34 PT 13.1 SECONDS (9.7-12.2) H 03/15/17 15:54 INR 1.2 03/15/17 15:54 APTT 32 SECONDS (21-34) 03/15/17 15:54 - Constitutional Appears: No Acute Distress - Head Exam Head Exam: ATRAUMATIC, NORMOCEPHALIC - Eye Exam Eye Exam: EOMI, Normal appearance, PERRL - ENT Exam ENT Exam: Mucous Membranes Moist - Respiratory Exam Respiratory Exam: Clear to Ausculation Bilateral, NORMAL BREATHING PATTERN. absent: Rales, Rhonchi, Wheezes, Stridor - Cardiovascular Exam Cardiovascular Exam: REGULAR RHYTHM, +S1, +S2 - GI/Abdominal Exam GI & Abdominal Exam: Soft, Tenderness (RUQ), Normal Bowel Sounds. absent: Distended - Extremities Exam Extremities Exam: Normal Inspection. absent: Calf Tenderness, Tenderness - Neurological Exam Neurological Exam: Alert, Awake, Oriented x3 - Psychiatric Exam Psychiatric exam: Normal Affect, Normal Mood - Skin Skin Exam: Dry, Intact, Normal Color, Warm Assessment and Plan - Assessment and Plan (Free Text) Plan: 1. Cholecystitis * Admit to med/surg * WBC 12.8, no left shift, bandemia * Gen surgery consult, Dr. Pat * NPO diet in AM--> patient going to OR today * pt for Cholecystectomy in AM * US ABD (03/15/17): Immobile gallstone at GB neck. Positive sono aguillon sign. No GB wall thickening or pericholecystic edema. (see full report) * From prior admission: * CT A/P (03/09/17) Distended gallbladder. Common bile duct prominence pancreatic head. Evaluation regarding any potential pancreatic masses -no gross appreciated. No gross calculi in common bile duct appreciated. Follow-up recommended -initial right upper quadrant ultrasound attention to gallbladder common bile duct and pancreatic head recommended. Additional CT pancreatic protocol subsequent imaging -to be determined Medications: * Tylenol 975mg PO Q6H PRN (fever) * Dilaudid 0.5mg IV Q4H PRN (moderate pain) * LR @ 120mls/hr * Flagyl 500mg IV Q8H IV (Start 03/15/17) * Ceftriaxone 1gm Q12H IV (Start 03/15/17) * Zofran 4mg IV Q4H PRN Pre-op labs: * Coags WNL * EKG:nsr@77 * Chest x-ray- no active pulmonary disease 2. Abnormal UA * UA (03/15/17): Positive nitrate, many bacteria, Sq epithelial * Pt on ceftriaxone for cholecystitis * f/u urine culture 3. Thrombocytosis * Mild 534 on presentation, believed reactionary to infection * Monitor 4. Depression * Continue home Trazadone 5. Anxiety * Continue Home Buspar 6. Degenerative disc disease/Scoliosis * Pt on dilaudid for abd pain * Monitor 7. Prophylaxis * Hold anticoagulation as pt pre-op * SCDs * Protonix 40mg IV daily * PT/OT * Intermediate Designer referral <Ciaran Cruz Jr. - Last Filed: 03/18/17 19:27> Objective - Vital Signs/Intake and Output Vital Signs (last 24 hours): Temp Pulse Resp BP Pulse Ox 98.7 F 95 H 20 125/78 93 L 03/18/17 15:00 03/18/17 15:00 03/18/17 15:00 03/18/17 15:00 03/18/17 15:00 Intake and Output: 03/18/17 03/19/17 18:59 06:59 Intake Total 1080 Output Total 5 Balance 1075 - Medications Medications: Current Medications Acetaminophen (Tylenol 325mg Tab) 975 mg PO Q6 PRN PRN Reason: Fever >100.4 F Last Admin: 03/18/17 05:58 Dose: 975 mg Heparin Sodium (Porcine) (Heparin) 5,000 units SC Q8 [facility] Last Admin: 03/18/17 15:00 Dose: 5,000 units Hydromorphone HCl (Dilaudid) 1 mg IVP Q3H PRN PRN Reason: Pain, severe (8-10) Last Admin: 03/18/17 15:46 Dose: 1 mg Lactated Ringer's (Lactated Ringer's) 1,000 mls @ 120 mls/hr IV .Q8H20M [facility] Last Admin: 03/18/17 15:47 Dose: 120 mls/hr Ceftriaxone Sodium 1 gm/ (Sodium Chloride) 100 mls @ 100 mls/hr IVPB Q12H [facility] Last Admin: 03/18/17 04:10 Dose: 100 mls/hr Metronidazole (Flagyl) 500 mg in 100 mls @ 100 mls/hr IVPB Q8H [facility] Last Admin: 03/18/17 17:31 Dose: 100 mls/hr Ondansetron HCl (Zofran Inj) 4 mg IVP Q4H PRN PRN Reason: Nausea/Vomiting Last Admin: 03/18/17 15:45 Dose: 4 mg Oxycodone/Acetaminophen (Percocet 5/325 Mg Tab) 2 tab PO Q4H PRN PRN Reason: Pain, moderate (4-7) Stop: 03/19/17 18:07 Pantoprazole Sodium (Protonix Inj) 40 mg IVP DAILY [facility] Last Admin: 03/18/17 09:57 Dose: 40 mg Trazodone HCl (Desyrel) 100 mg PO HS [facility] Last Admin: 03/17/17 21:23 Dose: 100 mg - Labs Labs: 03/18/17 07:42 03/18/17 07:42 PT 13.1 SECONDS (9.7-12.2) H 03/15/17 15:54 INR 1.2 03/15/17 15:54 APTT 32 SECONDS (21-34) 03/15/17 15:54 Attending/Attestation - Attestation I have personally seen and examined this patient.: Yes I have fully participated in the care of the patient.: Yes I have reviewed all pertinent clinical information, including history, physical exam and plan: Yes Notes (Text): 03/18/17 19:27 Agree with resident note and plan of care
[2017-03-16] MEDS ORDERED: Lactated Ringer's 1,000 ML IV ONE ×2 (14:45→17:08)
[2017-03-16] MEDS ORDERED: Midazolam 2 MG/2 ML VIAL ONE (14:53)
[2017-03-16] MEDS ORDERED: Propofol 10 mg/ml Inj (20 ML) ONE (14:55)
[2017-03-16] MEDS ORDERED: ceFAZolin IV 1 gm in Dextrose 1 GM/50 ML BAG IVPB ONE (15:09)
[2017-03-16] MEDS ORDERED: Neostigmine Methylsulfate 3mg/3ml Syringe IV ONE (16:06)
--- NOTE | 2017-03-16 18:00 | PCM.SURG1 ---
Surgeon's Initial Post Op Note - Surgeon's Notes Surgeon: Dr. Pat Ror Engineer: Paddy Rudolph(med student) Type of Anesthesia: General Endo Pre-Operative Diagnosis: cholecystitis Operative Findings: Gallstones and inflamed gallbladder and patent cbd Post-Operative Diagnosis: cholecystitis Operation Performed: laparoscopic cholecystectomy and intraoperative cholangiogram Specimen/Specimens Removed: Gallbladder Estimated Blood Loss: EBL {In ML}: 100 Blood Products Given: N/A Drains Used: Lucas Post-Op Condition: Good Date of Surgery/Procedure: 03/16/17 Time of Surgery/Procedure: 18:02
[2017-03-16] MEDS ORDERED: Oxycodone/Acetaminophen 5/325 mg Tab PO PRN (18:06)
[2017-03-16] MEDS ORDERED: HYDROmorphone 0.5 mg/0.5 ml ISec IVP PRN (18:09)
[2017-03-16 20:53] VITALS: RESP 20
[2017-03-17] MEDS: metroNIDAZOLE IV 500 mg/100 ml 500 MG/100 ML BAG IVPB SCH ×3 (00:59→16:57)
--- NOTE | 2017-03-17 04:10 | OP ---
PROCEDURE DATE: 03/16/2017 PREOPERATIVE DIAGNOSIS: Acute cholecystitis. POSTOPERATIVE DIAGNOSIS: Acute cholecystitis. PROCEDURE CARRIED OUT: Laparoscopic cholecystectomy with C-arm cholangiogram. SURGEON: Salo Pat Jr., MD PROFILER: Dr. Morales. TYPE OF ANESTHESIA: General anesthesia. ANESTHESIA ADMINISTERED BY: Dr. Gallagher and Dr. Hansen. INDICATIONS: A 51-year-old woman with history of depression and some severe abdominal pain, found to have gallstones and thick-walled gallbladder. OPERATIVE FINDINGS: Acutely inflamed gallbladder of many days' duration. This is a very difficult operation. Difficulty came from the inflammation and adherence of the gallbladder to the adjacent structures. There were 2 large gallstones. A cholangiogram carried out to the cystic duct showed free flow into the duodenum and visualization of the hepatic radicles. This was a difficult portion with all the adhesions. The bleeding that came from the liver bed, although was not excessive in the amount of 100 to 200 mL, it did require constant reassessment of the liver bed and constant control with the use of cautery. DESCRIPTION OF PROCEDURE: The patient was given general anesthesia and intravenous antibiotics. Venodyne boots were applied. A Dmitriy trocar was inserted via cut-down technique. Two additional trocars were placed. The cystic duct and cystic artery were identified, view of safety obtained. After this have been clipped, the cholangiogram was carried out, and then the cystic artery was clipped. We then removed the gallbladder from the bed and this was the most difficult part of the operation getting this off the liver bed. Eventually, this was done successfully with good hemostasis, although very tedious. We then removed the gallbladder from the field into bag, and again, this was quite difficult due to the large size of the stones, large size of the gallbladder and the small size of the umbilical incision. After these have been done, we then irrigated everything out to remove as much fluid as possible, checked two or three separate times for hemostasis the liver bed which was adequate, and then we closed the abdomen. A drain was left because of the amount of irrigation fluid that was used. Blood loss was 100 to 200 mL. Operation, laparoscopic cholecystectomy with C-arm cholangiogram, more difficult than usual due to the adhesions and inflammation present. Salo Pat Jr., MD
[2017-03-17] MEDS: Lactated Ringer's 1,000 ML IV SCH ×3 (05:05→13:32)
[2017-03-17 07:26] LABS: BASO % 0.3 % (0.0-2.0); HEMOGLOBIN 9.5 g/dL (11.0-16.0); LYMPH # 1.6 K/uL (1.0-4.3); LYMPH % 11.1 % (20.0-40.0); MEAN CELL VOLUME 80.4 fL (81.0-99.0); MEAN CORPUSCULAR HEMOGLOBIN 26.2 pg (27.0-31.0); MEAN CORPUSCULAR HGB CONC 32.6 g/dL (33.0-37.0); MEAN PLATELET VOLUME 7.8 fL (7.2-11.7); MONO # 1.1 K/uL (0.0-0.8); MONO % 8.1 % (0.0-10.0); NEUT # 11.4 K/uL (1.8-7.0); NEUT % 80.5 % (50.0-75.0); RBC 3.63 Mil/uL (3.80-5.20); RED CELL DISTRIBUTION WIDTH 12.9 % (11.5-14.5); WHITE BLOOD COUNT 14.1 K/uL (4.8-10.8)
--- NOTE | 2017-03-17 07:41 | CP.PCM.PN ---
<Jannie Garner - Last Filed: 03/17/17 18:05> Subjective - Date & Time of Evaluation Date of Evaluation: 03/17/17 Time of Evaluation: 07:41 - Subjective Subjective: Medicine progress note for Dr. Cruz's service Patient was seen and examined at bedside in the morning. Patient is s/p lap cholecystectomy. Patient reports having nausea and vomiting, as well as abdominal pain. Patient was reevaulated early afternoon and appeared better. Patient was less nauseas than previously and reported medication helped (given zofran). Patient denies chest pain, shortness of breath, nausea, vomiting, fevers, headaches, and leg pain/swelling. Objective - Vital Signs/Intake and Output Vital Signs (last 24 hours): Temp Pulse Resp BP Pulse Ox 98.3 F 102 H 20 113/73 98 03/17/17 05:19 03/17/17 05:19 03/17/17 05:19 03/17/17 05:19 03/17/17 05:19 Intake and Output: 03/17/17 03/17/17 06:59 18:59 Intake Total 1160 1160 Output Total 170 10 Balance 990 1150 - Medications Medications: Current Medications Acetaminophen (Tylenol 325mg Tab) 975 mg PO Q6 PRN PRN Reason: Fever >100.4 F Heparin Sodium (Porcine) (Heparin) 5,000 units SC Q8 [facility] Hydromorphone HCl (Dilaudid) 0.5 mg IVP Q4H PRN PRN Reason: Pain, severe (8-10) Last Admin: 03/17/17 05:14 Dose: 0.5 mg Lactated Ringer's (Lactated Ringer's) 1,000 mls @ 120 mls/hr IV .Q8H20M [facility] Last Admin: 03/17/17 05:05 Dose: Not Given Ceftriaxone Sodium 1 gm/ (Sodium Chloride) 100 mls @ 100 mls/hr IVPB Q12H [facility] Last Admin: 03/17/17 05:02 Dose: 100 mls/hr Metronidazole (Flagyl) 500 mg in 100 mls @ 100 mls/hr IVPB Q8H [facility] Last Admin: 03/17/17 00:59 Dose: 100 mls/hr Ondansetron HCl (Zofran Inj) 4 mg IVP Q4H PRN PRN Reason: Nausea/Vomiting Last Admin: 03/17/17 02:23 Dose: 4 mg Oxycodone/Acetaminophen (Percocet 5/325 Mg Tab) 2 tab PO Q4H PRN PRN Reason: Pain, moderate (4-7) Stop: 03/19/17 18:07 Pantoprazole Sodium (Protonix Inj) 40 mg IVP DAILY [facility] Last Admin: 03/16/17 10:14 Dose: 40 mg Pneumococcal Polyvalent Vaccine (Pneumovax 23 Vaccine) 0.5 ml IM .ONCE ONE Stop: 03/17/17 10:01 Trazodone HCl (Desyrel) 100 mg PO HS [facility] Last Admin: 03/16/17 21:48 Dose: 100 mg - Labs Labs: 03/17/17 07:16 03/16/17 06:34 PT 13.1 SECONDS (9.7-12.2) H 03/15/17 15:54 INR 1.2 03/15/17 15:54 APTT 32 SECONDS (21-34) 03/15/17 15:54 - Additional Findings Additional findings: - Constitutional Appears: No Acute Distress - Head Exam Head Exam: ATRAUMATIC, NORMOCEPHALIC - Eye Exam Eye Exam: EOMI, Normal appearance, PERRL - ENT Exam ENT Exam: Mucous Membranes Moist - Respiratory Exam Respiratory Exam: Clear to Ausculation Bilateral, NORMAL BREATHING PATTERN. absent: Rales, Rhonchi, Wheezes, Stridor - Cardiovascular Exam Cardiovascular Exam: REGULAR RHYTHM, +S1, +S2 - GI/Abdominal Exam GI & Abdominal Exam: Soft, Tenderness (RUQ, surgical site), Normal Bowel Sounds. absent: Distended Dressings clean, dry, intact - Extremities Exam Extremities Exam: Normal Inspection. absent: Calf Tenderness, Tenderness - Neurological Exam Neurological Exam: Alert, Awake, Oriented x3 - Psychiatric Exam Psychiatric exam: Normal Affect, Normal Mood - Skin Skin Exam: Dry, Intact, Normal Color, Warm Assessment and Plan - Assessment and Plan (Free Text) Plan: 1. Cholecystitis * Admit to med/surg * WBC 12.8, no left shift or bandemia * Continue to monitor CBC * Gen surgery consult, Dr. Pat * s/p lap cholecystectomy on 03/16/[address] Pat * US ABD (03/15/17): Immobile gallstone at GB neck. Positive sono aguillon sign. No GB wall thickening or pericholecystic edema. (see full report) * From prior admission: * CT A/P (03/09/17) Distended gallbladder. Common bile duct prominence pancreatic head. Evaluation regarding any potential pancreatic masses -no gross appreciated. No gross calculi in common bile duct appreciated. Follow-up recommended -initial right upper quadrant ultrasound attention to gallbladder common bile duct and pancreatic head recommended. Additional CT pancreatic protocol subsequent imaging -to be determined Medications: * Tylenol 975mg PO Q6H PRN (fever) * Dilaudid 0.5mg IV Q4H PRN (moderate pain) * LR @ 120mls/hr * Flagyl 500mg IV Q8H IV (Start 03/15/17) * Ceftriaxone 1gm Q12H IV (Start 03/15/17) * Zofran 4mg IV Q4H PRN Pre-op labs: * Coags WNL * EKG:nsr@77 * Chest x-ray- no active pulmonary disease 2. Abnormal UA * UA (03/15/17): Positive nitrate, many bacteria, Sq epithelial * Pt on ceftriaxone for cholecystitis * f/u urine culture 3. Thrombocytosis * Resolved, 383 on 03/17/17 * Mild 534 on presentation, believed reactionary to infection * Continue to Monitor 4. Depression * Continue home Trazadone 5. Anxiety * Continue Home Buspar 6. Degenerative disc disease/Scoliosis * Pt on dilaudid for abd pain * Monitor 7. Prophylaxis * Hepain 5000sc * SCDs * Protonix 40mg IV daily * PT/OT * Supply Chain Development Manager referral <Ciaran Cruz Jr. - Last Filed: 03/18/17 19:32> Objective - Vital Signs/Intake and Output Vital Signs (last 24 hours): Temp Pulse Resp BP Pulse Ox 98.7 F 95 H 20 125/78 93 L 03/18/17 15:00 03/18/17 15:00 03/18/17 15:00 03/18/17 15:00 03/18/17 15:00 Intake and Output: 03/18/17 03/19/17 18:59 06:59 Intake Total 1080 Output Total 5 Balance 1075 - Medications Medications: Current Medications Acetaminophen (Tylenol 325mg Tab) 975 mg PO Q6 PRN PRN Reason: Fever >100.4 F Last Admin: 03/18/17 05:58 Dose: 975 mg Heparin Sodium (Porcine) (Heparin) 5,000 units SC Q8 [facility] Last Admin: 03/18/17 15:00 Dose: 5,000 units Hydromorphone HCl (Dilaudid) 1 mg IVP Q3H PRN PRN Reason: Pain, severe (8-10) Last Admin: 03/18/17 15:46 Dose: 1 mg Lactated Ringer's (Lactated Ringer's) 1,000 mls @ 120 mls/hr IV .Q8H20M [facility] Last Admin: 03/18/17 15:47 Dose: 120 mls/hr Ceftriaxone Sodium 1 gm/ (Sodium Chloride) 100 mls @ 100 mls/hr IVPB Q12H [facility] Last Admin: 03/18/17 04:10 Dose: 100 mls/hr Metronidazole (Flagyl) 500 mg in 100 mls @ 100 mls/hr IVPB Q8H [facility] Last Admin: 03/18/17 17:31 Dose: 100 mls/hr Ondansetron HCl (Zofran Inj) 4 mg IVP Q4H PRN PRN Reason: Nausea/Vomiting Last Admin: 03/18/17 15:45 Dose: 4 mg Oxycodone/Acetaminophen (Percocet 5/325 Mg Tab) 2 tab PO Q4H PRN PRN Reason: Pain, moderate (4-7) Stop: 03/19/17 18:07 Pantoprazole Sodium (Protonix Inj) 40 mg IVP DAILY [facility] Last Admin: 03/18/17 09:57 Dose: 40 mg Trazodone HCl (Desyrel) 100 mg PO HS [facility] Last Admin: 03/17/17 21:23 Dose: 100 mg - Labs Labs: 03/18/17 07:42 03/18/17 07:42 PT 13.1 SECONDS (9.7-12.2) H 03/15/17 15:54 INR 1.2 03/15/17 15:54 APTT 32 SECONDS (21-34) 03/15/17 15:54 Attending/Attestation - Attestation I have personally seen and examined this patient.: Yes I have fully participated in the care of the patient.: Yes I have reviewed all pertinent clinical information, including history, physical exam and plan: Yes Notes (Text): 03/18/17 19:31 Agree with resident note and plan of care
[2017-03-17 08:01] LABS: BLOOD UREA NITROGEN 6 mg/dL (7-17); GFR AFRICAN-AMERICAN > 60; GFR NON-AFRICAN AMERICAN > 60
[2017-03-17 08:02] LABS: ALBUMIN 3.2 g/dL (3.5-5.0); ALT/SGPT 36 U/L (9-52); AST/SGOT 52 U/L (14-36); CALCIUM 8.4 mg/dl (8.6-10.4)
[2017-03-17] MEDS ORDERED: Pneumococcal 23-Valent Vaccine IM ONE (10:00)
--- NOTE | 2017-03-17 16:06 | CARD ---
APPROVED REPORT EKG Measurement Heart [id number] <Conclusion> Normal sinus rhythm Low voltage QRS Borderline ECG
--- NOTE | 2017-03-17 18:29 | CP.PCM.PN ---
Subjective - Date & Time of Evaluation Date of Evaluation: 03/17/17 Time of Evaluation: 14:55 - Subjective Subjective: General Surgery Pt S&E, had some emesis today with pain mainly at drain site. Objective - Vital Signs/Intake and Output Vital Signs (last 24 hours): Temp Pulse Resp BP Pulse Ox 98.5 F 87 20 117/75 94 L 03/17/17 15:00 03/17/17 15:00 03/17/17 15:00 03/17/17 15:00 03/17/17 15:00 Intake and Output: 03/17/17 03/17/17 06:59 18:59 Intake Total 1160 2240 Output Total 170 25 Balance 990 2215 - Medications Medications: Current Medications Acetaminophen (Tylenol 325mg Tab) 975 mg PO Q6 PRN PRN Reason: Fever >100.4 F Heparin Sodium (Porcine) (Heparin) 5,000 units SC Q8 [facility] Hydromorphone HCl (Dilaudid) 1 mg IVP Q3H PRN PRN Reason: Pain, severe (8-10) Lactated Ringer's (Lactated Ringer's) 1,000 mls @ 120 mls/hr IV .Q8H20M [facility] Last Admin: 03/17/17 13:32 Dose: Not Given Ceftriaxone Sodium 1 gm/ (Sodium Chloride) 100 mls @ 100 mls/hr IVPB Q12H [facility] Last Admin: 03/17/17 05:02 Dose: 100 mls/hr Metronidazole (Flagyl) 500 mg in 100 mls @ 100 mls/hr IVPB Q8H [facility] Last Admin: 03/17/17 16:57 Dose: 100 mls/hr Ondansetron HCl (Zofran Inj) 4 mg IVP Q4H PRN PRN Reason: Nausea/Vomiting Last Admin: 03/17/17 13:30 Dose: 4 mg Oxycodone/Acetaminophen (Percocet 5/325 Mg Tab) 2 tab PO Q4H PRN PRN Reason: Pain, moderate (4-7) Stop: 03/19/17 18:07 Pantoprazole Sodium (Protonix Inj) 40 mg IVP DAILY [facility] Last Admin: 03/17/17 11:00 Dose: 40 mg Trazodone HCl (Desyrel) 100 mg PO HS [facility] Last Admin: 03/16/17 21:48 Dose: 100 mg - Labs Labs: 03/17/17 07:16 03/17/17 07:16 PT 13.1 SECONDS (9.7-12.2) H 03/15/17 15:54 INR 1.2 03/15/17 15:54 APTT 32 SECONDS (21-34) 03/15/17 15:54 - Constitutional Appears: Non-toxic, No Acute Distress - Head Exam Head Exam: ATRAUMATIC, NORMOCEPHALIC - Eye Exam Eye Exam: EOMI. absent: Scleral icterus - Respiratory Exam Respiratory Exam: NORMAL BREATHING PATTERN. absent: Respiratory Distress - GI/Abdominal Exam GI & Abdominal Exam: Guarding (mild), Soft, Tenderness (at drain site). absent : Distended, Firm, Rigid, Rebound Additional comments: incisions C/D/I, torie in place with serosanguinous drainage - Neurological Exam Neurological Exam: Alert, Awake - Skin Skin Exam: Dry, Warm Assessment and Plan - Assessment and Plan (Free Text) Assessment: 51F POD#1 S/P lap cholecystectomy Plan: Increased pain meds Zofran PRN Monitor drain output. Serial abd exams AM labs D/W Dr. Bi Goodson PGY4
[2017-03-18] MEDS: metroNIDAZOLE IV 500 mg/100 ml 500 MG/100 ML BAG IVPB SCH ×3 (00:08→17:31)
[2017-03-18] MEDS: Lactated Ringer's 1,000 ML IV SCH ×3 (00:09→15:47)
[2017-03-18 08:00] LABS: BASO # 0.1 K/uL (0.0-0.2); BASO % 0.5 % (0.0-2.0); EOS % 0.3 % (0.0-4.0); HEMOGLOBIN 9.2 g/dL (11.0-16.0); LYMPH # 2.3 K/uL (1.0-4.3); MEAN CELL VOLUME 80.6 fL (81.0-99.0); MEAN CORPUSCULAR HEMOGLOBIN 27.5 pg (27.0-31.0); MEAN CORPUSCULAR HGB CONC 34.1 g/dL (33.0-37.0); MEAN PLATELET VOLUME 7.6 fL (7.2-11.7); MONO # 1.1 K/uL (0.0-0.8); MONO % 9.1 % (0.0-10.0); NEUT # 8.7 K/uL (1.8-7.0); NEUT % 71.1 % (50.0-75.0); RBC 3.35 Mil/uL (3.80-5.20); RED CELL DISTRIBUTION WIDTH 12.9 % (11.5-14.5); WHITE BLOOD COUNT 12.2 K/uL (4.8-10.8)
[2017-03-18 08:39] LABS: ALB/GLOB RATIO 0.9 (1.0-2.1); ALT/SGPT 36 U/L (9-52); AST/SGOT 38 U/L (14-36); BLOOD UREA NITROGEN 4 mg/dL (7-17); CALCIUM 8.4 mg/dl (8.6-10.4); GFR AFRICAN-AMERICAN > 60; GFR NON-AFRICAN AMERICAN > 60
--- NOTE | 2017-03-18 08:59 | RAD ---
PROCEDURE: HISTORY: Acute cholecystitis COMPARISON: None TECHNIQUE: Total fluoroscopic time utilized during the procedure: 47.4 seconds. Total dose 13.53 mGy cm squared FINDINGS: Submitted images from the current procedure: 5 Please refer to the physician's notes performing the procedure. IMPRESSION: Less than 1 hour fluoroscopic time utilized during performance of the procedure
[2017-03-18] MEDS ORDERED: Potassium Chloride 20 mEq ER Tab PO ONE (09:36)
--- NOTE | 2017-03-18 10:28 | CP.PCM.PN ---
Subjective - Date & Time of Evaluation Date of Evaluation: 03/18/17 Time of Evaluation: 06:45 - Subjective Subjective: General surgery progress note for Dr. Ayden Mg, PGY-1 Pt S & E at bedside this AM. Pt reports increased abdominal pain, some emesis. Admits to flatus, is ambulating to bathroom. Drain with 10 serosanguinous output. Objective - Vital Signs/Intake and Output Vital Signs (last 24 hours): Temp Pulse Resp BP Pulse Ox 98.6 F 99 H 20 110/75 95 03/18/17 07:50 03/18/17 07:50 03/18/17 07:50 03/18/17 07:50 03/18/17 07:50 Intake and Output: 03/18/17 03/18/17 06:59 18:59 Intake Total 1060 1080 Output Total 25 5 Balance 1035 1075 - Medications Medications: Current Medications Acetaminophen (Tylenol 325mg Tab) 975 mg PO Q6 PRN PRN Reason: Fever >100.4 F Last Admin: 03/18/17 05:58 Dose: 975 mg Heparin Sodium (Porcine) (Heparin) 5,000 units SC Q8 [facility] Last Admin: 03/18/17 05:59 Dose: 5,000 units Hydromorphone HCl (Dilaudid) 1 mg IVP Q3H PRN PRN Reason: Pain, severe (8-10) Last Admin: 03/18/17 09:58 Dose: 1 mg Lactated Ringer's (Lactated Ringer's) 1,000 mls @ 120 mls/hr IV .Q8H20M [facility] Last Admin: 03/18/17 05:43 Dose: Not Given Ceftriaxone Sodium 1 gm/ (Sodium Chloride) 100 mls @ 100 mls/hr IVPB Q12H [facility] Last Admin: 03/18/17 04:10 Dose: 100 mls/hr Metronidazole (Flagyl) 500 mg in 100 mls @ 100 mls/hr IVPB Q8H [facility] Last Admin: 03/18/17 08:58 Dose: 100 mls/hr Ondansetron HCl (Zofran Inj) 4 mg IVP Q4H PRN PRN Reason: Nausea/Vomiting Last Admin: 03/17/17 19:19 Dose: 4 mg Oxycodone/Acetaminophen (Percocet 5/325 Mg Tab) 2 tab PO Q4H PRN PRN Reason: Pain, moderate (4-7) Stop: 03/19/17 18:07 Pantoprazole Sodium (Protonix Inj) 40 mg IVP DAILY [facility] Last Admin: 03/18/17 09:57 Dose: 40 mg Trazodone HCl (Desyrel) 100 mg PO HS [facility] Last Admin: 03/17/17 21:23 Dose: 100 mg - Labs Labs: 03/18/17 07:42 03/18/17 07:42 PT 13.1 SECONDS (9.7-12.2) H 03/15/17 15:54 INR 1.2 03/15/17 15:54 APTT 32 SECONDS (21-34) 03/15/17 15:54 - Constitutional Appears: Non-toxic, No Acute Distress - Head Exam Head Exam: ATRAUMATIC, NORMAL INSPECTION, NORMOCEPHALIC - Eye Exam Eye Exam: EOMI, Normal appearance - ENT Exam ENT Exam: Mucous Membranes Moist, Normal Exam - Neck Exam Neck Exam: Full ROM, Normal Inspection - Respiratory Exam Respiratory Exam: NORMAL BREATHING PATTERN - Cardiovascular Exam Cardiovascular Exam: REGULAR RHYTHM, +S1, +S2 - GI/Abdominal Exam GI & Abdominal Exam: Guarding (mild), Soft, Tenderness (around drain site). absent: Firm, Rigid - Extremities Exam Extremities Exam: Normal Inspection - Neurological Exam Neurological Exam: Alert, Awake, CN II-XII Intact, Oriented x3 - Psychiatric Exam Psychiatric exam: Normal Affect, Normal Mood - Skin Skin Exam: Dry, Intact, Normal Color, Warm Assessment and Plan - Assessment and Plan (Free Text) Assessment: 51F POD#2 s/p lap cholecystectomy with continued ab pain post op Plan: Cont pain meds Cont Abx Leukocytosis improving Zofran PRN Monitor drain output Serial ab exams Replace electrolytes PRN Ambulate OOBTC Encourage IS use Further mgmt as per primary team DW attending Haritha, PGY-1
--- NOTE | 2017-03-18 11:09 | CP.PCM.PN ---
Subjective - Date & Time of Evaluation Date of Evaluation: 03/18/17 Time of Evaluation: 11:07 - Subjective Subjective: Medicine progress note for Dr. Cruz's service Patient was seen and examined at bedside in the morning. Patient is s/p lap cholecystectomy. Patient reports having abdominal pain and excessive gas. Patient is tolerating diet and ambulating. Patient denies chest pain, shortness of breath, nausea, vomiting, fevers, headaches, and leg pain/swelling. Objective - Vital Signs/Intake and Output Vital Signs (last 24 hours): Temp Pulse Resp BP Pulse Ox 98.6 F 99 H 20 110/75 95 03/18/17 07:50 03/18/17 07:50 03/18/17 07:50 03/18/17 07:50 03/18/17 07:50 Intake and Output: 03/18/17 03/18/17 06:59 18:59 Intake Total 1060 1080 Output Total 25 5 Balance 1035 1075 - Medications Medications: Current Medications Acetaminophen (Tylenol 325mg Tab) 975 mg PO Q6 PRN PRN Reason: Fever >100.4 F Last Admin: 03/18/17 05:58 Dose: 975 mg Heparin Sodium (Porcine) (Heparin) 5,000 units SC Q8 [facility] Last Admin: 03/18/17 05:59 Dose: 5,000 units Hydromorphone HCl (Dilaudid) 1 mg IVP Q3H PRN PRN Reason: Pain, severe (8-10) Last Admin: 03/18/17 09:58 Dose: 1 mg Lactated Ringer's (Lactated Ringer's) 1,000 mls @ 120 mls/hr IV .Q8H20M [facility] Last Admin: 03/18/17 05:43 Dose: Not Given Ceftriaxone Sodium 1 gm/ (Sodium Chloride) 100 mls @ 100 mls/hr IVPB Q12H [facility] Last Admin: 03/18/17 04:10 Dose: 100 mls/hr Metronidazole (Flagyl) 500 mg in 100 mls @ 100 mls/hr IVPB Q8H [facility] Last Admin: 03/18/17 08:58 Dose: 100 mls/hr Ondansetron HCl (Zofran Inj) 4 mg IVP Q4H PRN PRN Reason: Nausea/Vomiting Last Admin: 03/17/17 19:19 Dose: 4 mg Oxycodone/Acetaminophen (Percocet 5/325 Mg Tab) 2 tab PO Q4H PRN PRN Reason: Pain, moderate (4-7) Stop: 03/19/17 18:07 Pantoprazole Sodium (Protonix Inj) 40 mg IVP DAILY [facility] Last Admin: 03/18/17 09:57 Dose: 40 mg Trazodone HCl (Desyrel) 100 mg PO HS [facility] Last Admin: 03/17/17 21:23 Dose: 100 mg - Labs Labs: 03/18/17 07:42 03/18/17 07:42 PT 13.1 SECONDS (9.7-12.2) H 03/15/17 15:54 INR 1.2 03/15/17 15:54 APTT 32 SECONDS (21-34) 03/15/17 15:54 - Additional Findings Additional findings: - Constitutional Appears: No Acute Distress - Head Exam Head Exam: ATRAUMATIC, NORMOCEPHALIC - Eye Exam Eye Exam: EOMI, Normal appearance, PERRL - ENT Exam ENT Exam: Mucous Membranes Moist - Respiratory Exam Respiratory Exam: Clear to Ausculation Bilateral, NORMAL BREATHING PATTERN. absent: Rales, Rhonchi, Wheezes, Stridor - Cardiovascular Exam Cardiovascular Exam: REGULAR RHYTHM, +S1, +S2 - GI/Abdominal Exam GI & Abdominal Exam: Soft, Tenderness (RUQ, surgical site), Normal Bowel Sounds. absent: Distended Dressings clean, dry, intact - Extremities Exam Extremities Exam: Normal Inspection. absent: Calf Tenderness, Tenderness - Neurological Exam Neurological Exam: Alert, Awake, Oriented x3 - Psychiatric Exam Psychiatric exam: Normal Affect, Normal Mood - Skin Skin Exam: Dry, Intact, Normal Color, Warm Assessment and Plan - Assessment and Plan (Free Text) Plan: 1. Cholecystitis * Admit to med/surg * Continue to monitor CBC * Gen surgery consult, Dr. Pat * s/p lap cholecystectomy on 03/16/[address] Pat * US ABD (03/15/17): Immobile gallstone at GB neck. Positive sono aguillon sign. No GB wall thickening or pericholecystic edema. (see full report) * From prior admission: * CT A/P (03/09/17) Distended gallbladder. Common bile duct prominence pancreatic head. Evaluation regarding any potential pancreatic masses -no gross appreciated. No gross calculi in common bile duct appreciated. Follow-up recommended -initial right upper quadrant ultrasound attention to gallbladder common bile duct and pancreatic head recommended. Additional CT pancreatic protocol subsequent imaging -to be determined Medications: * Tylenol 975mg PO Q6H PRN (fever) * Dilaudid 0.5mg IV Q4H PRN (moderate pain) * LR @ 120mls/hr * Flagyl 500mg IV Q8H IV (Start 03/15/17) * Ceftriaxone 1gm Q12H IV (Start 03/15/17) * Zofran 4mg IV Q4H PRN Pre-op labs: * Coags WNL * EKG:nsr@77 * Chest x-ray- no active pulmonary disease 2. Abnormal UA * UA (03/15/17): Positive nitrate, many bacteria, Sq epithelial * Pt on ceftriaxone for cholecystitis * urine culture: no growth 3. Thrombocytosis * Resolved, 383 on 03/17/17 * Mild 534 on presentation, believed reactionary to infection * Continue to Monitor 4. Depression * Continue home Trazadone 5. Anxiety * Continue Home Buspar 6. Degenerative disc disease/Scoliosis * Pt on dilaudid for abd pain * Monitor 7. Prophylaxis * Hepain 5000sc * SCDs * Protonix 40mg IV daily * PT/OT * Solutions Development Analyst referral * Encouraged OOB, ambulation, and IS Discussed with Dr. Cruz.
[2017-03-19] MEDS: metroNIDAZOLE IV 500 mg/100 ml 500 MG/100 ML BAG IVPB SCH ×3 (01:55→16:39)
[2017-03-19] MEDS: Lactated Ringer's 1,000 ML IV SCH ×3 (05:05→15:56)
[2017-03-19 08:27] LABS: BASO # 0.1 K/uL (0.0-0.2); BASO % 0.5 % (0.0-2.0); EOS # 0.1 K/uL (0.0-0.7); EOS % 0.8 % (0.0-4.0); HEMOGLOBIN 9.4 g/dL (11.0-16.0); LYMPH # 2.9 K/uL (1.0-4.3); LYMPH % 24.9 % (20.0-40.0); MEAN CELL VOLUME 80.3 fL (81.0-99.0); MEAN CORPUSCULAR HEMOGLOBIN 27.1 pg (27.0-31.0); MEAN CORPUSCULAR HGB CONC 33.7 g/dL (33.0-37.0); MEAN PLATELET VOLUME 7.6 fL (7.2-11.7); MONO % 8.3 % (0.0-10.0); NEUT # 7.5 K/uL (1.8-7.0); NEUT % 65.5 % (50.0-75.0); RBC 3.47 Mil/uL (3.80-5.20); RED CELL DISTRIBUTION WIDTH 12.6 % (11.5-14.5); WHITE BLOOD COUNT 11.5 K/uL (4.8-10.8)
[2017-03-19 08:56] LABS: ALB/GLOB RATIO 0.9 (1.0-2.1); ALT/SGPT 35 U/L (9-52); AST/SGOT 36 U/L (14-36); BLOOD UREA NITROGEN 6 mg/dL (7-17); CALCIUM 8.5 mg/dl (8.6-10.4); GFR AFRICAN-AMERICAN > 60; GFR NON-AFRICAN AMERICAN > 60
--- NOTE | 2017-03-19 14:32 | CP.PCM.PN ---
Subjective - Date & Time of Evaluation Date of Evaluation: 03/19/17 Time of Evaluation: 14:29 - Subjective Subjective: Medicine progress note for Dr. Cruz's service Patient was seen and examined at bedside in the morning. Patient is s/p lap cholecystectomy. Patient reports still having abdominal pain and excessive gas, no longer nausea or vomiting. Patient is complaining of headache and requesting pain medication. Patient is also requesting to get out of bed and sit in the chair. Patient denies chest pain, shortness of breath, nausea, vomiting, fevers , and leg pain/swelling. Objective - Vital Signs/Intake and Output Vital Signs (last 24 hours): Temp Pulse Resp BP Pulse Ox 98.2 F 90 20 134/86 97 03/19/17 07:57 03/19/17 12:30 03/19/17 07:57 03/19/17 12:30 03/19/17 12:30 Intake and Output: 03/19/17 03/19/17 06:59 18:59 Intake Total 2160 Output Total 10 Balance 2150 - Medications Medications: Current Medications Acetaminophen (Tylenol 325mg Tab) 650 mg PO Q6 PRN PRN Reason: Headache Heparin Sodium (Porcine) (Heparin) 5,000 units SC Q8 [facility] Last Admin: 03/19/17 13:49 Dose: 5,000 units Hydromorphone HCl (Dilaudid) 1 mg IVP Q3H PRN PRN Reason: Pain, severe (8-10) Last Admin: 03/19/17 03:42 Dose: 1 mg Lactated Ringer's (Lactated Ringer's) 1,000 mls @ 120 mls/hr IV .Q8H20M [facility] Last Admin: 03/19/17 06:01 Dose: Not Given Ceftriaxone Sodium 1 gm/ (Sodium Chloride) 100 mls @ 100 mls/hr IVPB Q12H [facility] Last Admin: 03/19/17 05:04 Dose: 100 mls/hr Metronidazole (Flagyl) 500 mg in 100 mls @ 100 mls/hr IVPB Q8H [facility] Last Admin: 03/19/17 09:42 Dose: 100 mls/hr Ondansetron HCl (Zofran Inj) 4 mg IVP Q4H PRN PRN Reason: Nausea/Vomiting Last Admin: 03/18/17 15:45 Dose: 4 mg Oxycodone/Acetaminophen (Percocet 5/325 Mg Tab) 2 tab PO Q4H PRN PRN Reason: Pain, moderate (4-7) Stop: 03/19/17 18:07 Last Admin: 03/19/17 14:00 Dose: 2 tab Pantoprazole Sodium (Protonix Inj) 40 mg IVP DAILY [facility] Last Admin: 03/19/17 09:43 Dose: 40 mg Trazodone HCl (Desyrel) 100 mg PO HS [facility] Last Admin: 03/18/17 21:41 Dose: 100 mg - Labs Labs: 03/19/17 08:03 03/19/17 08:03 PT 13.1 SECONDS (9.7-12.2) H 03/15/17 15:54 INR 1.2 03/15/17 15:54 APTT 32 SECONDS (21-34) 03/15/17 15:54 - Additional Findings Additional findings: - Constitutional Appears: No Acute Distress - Head Exam Head Exam: ATRAUMATIC, NORMOCEPHALIC - Eye Exam Eye Exam: EOMI, Normal appearance, PERRL - ENT Exam ENT Exam: Mucous Membranes Moist - Respiratory Exam Respiratory Exam: Clear to Ausculation Bilateral, NORMAL BREATHING PATTERN. absent: Rales, Rhonchi, Wheezes, Stridor - Cardiovascular Exam Cardiovascular Exam: REGULAR RHYTHM, +S1, +S2 - GI/Abdominal Exam GI & Abdominal Exam: Soft, Tenderness (RUQ, surgical site), Normal Bowel Sounds. absent: Distended Dressings removed; steri strips in place; clean, dry, intact; drain present. - Extremities Exam Extremities Exam: Normal Inspection. absent: Calf Tenderness, Tenderness - Neurological Exam Neurological Exam: Alert, Awake, Oriented x3 - Psychiatric Exam Psychiatric exam: Normal Affect, Normal Mood - Skin Skin Exam: Dry, Intact, Normal Color, Warm Assessment and Plan - Assessment and Plan (Free Text) Plan: 1. Cholecystitis * Admit to med/surg * Continue to monitor CBC * Gen surgery consult, Dr. Pat * s/p lap cholecystectomy on 03/16/[address] Pat * US ABD (03/15/17): Immobile gallstone at GB neck. Positive sono aguillon sign. No GB wall thickening or pericholecystic edema. (see full report) * From prior admission: * CT A/P (03/09/17) Distended gallbladder. Common bile duct prominence pancreatic head. Evaluation regarding any potential pancreatic masses -no gross appreciated. No gross calculi in common bile duct appreciated. Follow-up recommended -initial right upper quadrant ultrasound attention to gallbladder common bile duct and pancreatic head recommended. Additional CT pancreatic protocol subsequent imaging -to be determined Medications: * Tylenol 975mg PO Q6H PRN (fever) * Dilaudid 0.5mg IV Q4H PRN (moderate pain) * LR @ 120mls/hr * Flagyl 500mg IV Q8H IV (Start 03/15/17) * Ceftriaxone 1gm Q12H IV (Start 03/15/17) * Zofran 4mg IV Q4H PRN Pre-op labs: * Coags WNL * EKG:nsr@77 * Chest x-ray- no active pulmonary disease 2. Abnormal UA * UA (03/15/17): Positive nitrate, many bacteria, Sq epithelial * Pt on ceftriaxone for cholecystitis * urine culture: no growth 3. Thrombocytosis * Resolved, 383 on 03/17/17 * Mild 534 on presentation, believed reactionary to infection * Continue to Monitor 4. Depression * Continue home Trazadone 5. Anxiety * Continue Home Buspar 6. Degenerative disc disease/Scoliosis * Pt on dilaudid for abd pain * Monitor 7. Prophylaxis * Hepain 5000sc * SCDs * Protonix 40mg IV daily * PT/OT * Telecommunications Project Manager referral * Encouraged OOB, ambulation, and IS Discussed with Dr. Cruz.
--- NOTE | 2017-03-19 19:15 | CP.PCM.PN ---
Subjective - Date & Time of Evaluation Date of Evaluation: 03/19/17 Time of Evaluation: 07:05 - Subjective Subjective: General Surgery Note for Dr. Pat Patient seen and examined at bedside. No acute event overnight. Patient states pain has improved. No nausea/vomiting today. Objective - Vital Signs/Intake and Output Vital Signs (last 24 hours): Temp Pulse Resp BP Pulse Ox 98.3 F 92 H 20 102/60 95 03/19/17 16:00 03/19/17 16:00 03/19/17 16:00 03/19/17 16:00 03/19/17 16:00 Intake and Output: 03/19/17 03/20/17 18:59 06:59 Intake Total 1500 Output Total 10 Balance 1490 - Medications Medications: Current Medications Acetaminophen (Tylenol 325mg Tab) 650 mg PO Q6 PRN PRN Reason: Headache Heparin Sodium (Porcine) (Heparin) 5,000 units SC Q8 [facility] Last Admin: 03/19/17 13:49 Dose: 5,000 units Hydromorphone HCl (Dilaudid) 1 mg IVP Q3H PRN PRN Reason: Pain, severe (8-10) Last Admin: 03/19/17 03:42 Dose: 1 mg Lactated Ringer's (Lactated Ringer's) 1,000 mls @ 120 mls/hr IV .Q8H20M [facility] Last Admin: 03/19/17 15:56 Dose: Not Given Ceftriaxone Sodium 1 gm/ (Sodium Chloride) 100 mls @ 100 mls/hr IVPB Q12H [facility] Last Admin: 03/19/17 16:37 Dose: 100 mls/hr Metronidazole (Flagyl) 500 mg in 100 mls @ 100 mls/hr IVPB Q8H [facility] Last Admin: 03/19/17 16:39 Dose: 100 mls/hr Ondansetron HCl (Zofran Inj) 4 mg IVP Q4H PRN PRN Reason: Nausea/Vomiting Last Admin: 03/18/17 15:45 Dose: 4 mg Pantoprazole Sodium (Protonix Inj) 40 mg IVP DAILY [facility] Last Admin: 03/19/17 09:43 Dose: 40 mg Trazodone HCl (Desyrel) 100 mg PO HS [facility] Last Admin: 03/18/17 21:41 Dose: 100 mg - Labs Labs: 03/19/17 08:03 03/19/17 08:03 PT 13.1 SECONDS (9.7-12.2) H 03/15/17 15:54 INR 1.2 03/15/17 15:54 APTT 32 SECONDS (21-34) 03/15/17 15:54 - Constitutional Appears: No Acute Distress - Head Exam Head Exam: ATRAUMATIC, NORMOCEPHALIC - Eye Exam Eye Exam: Normal appearance - ENT Exam ENT Exam: Mucous Membranes Moist - Respiratory Exam Respiratory Exam: NORMAL BREATHING PATTERN - Cardiovascular Exam Cardiovascular Exam: REGULAR RHYTHM - GI/Abdominal Exam GI & Abdominal Exam: Soft, Tenderness, Normal Bowel Sounds. absent: Distended, Firm, Guarding, Rigid, Rebound - Extremities Exam Extremities Exam: Normal Capillary Refill - Neurological Exam Neurological Exam: Alert, Awake, Oriented x3 - Psychiatric Exam Psychiatric exam: Normal Affect, Normal Mood - Skin Skin Exam: Dry, Intact, Normal Color, Warm Assessment and Plan - Assessment and Plan (Free Text) Plan: 51F s/p lap cholecystectomy POD#3 IV antibiotics Analgesics/Anti-emetics PRN Monitor drain output Ambulate/OOB/IS Management as per primary Discussed with Dr. Bi Drew PGY1
--- NOTE | 2017-03-20 01:21 | CP.PCM.PN ---
Subjective - Date & Time of Evaluation Date of Evaluation: 03/20/17 Time of Evaluation: 01:19 - Subjective Subjective: General Surgery: Dr Pat PT S&E. NAEO. Has been feeling much better since surgery. Minimal abdominal pain. Tolerating HHD. Passing flatus. Denies n/v, sob, f/c, chest pains. Objective - Vital Signs/Intake and Output Vital Signs (last 24 hours): Temp Pulse Resp BP Pulse Ox 98.3 F 92 H 20 102/60 95 03/19/17 16:00 03/19/17 16:00 03/19/17 16:00 03/19/17 16:00 03/19/17 16:00 Intake and Output: 03/19/17 03/20/17 18:59 06:59 Intake Total 1500 1210 Output Total 10 505 Balance 1490 705 - Medications Medications: Current Medications Acetaminophen (Tylenol 325mg Tab) 650 mg PO Q6 PRN PRN Reason: Headache Last Admin: 03/19/17 20:01 Dose: 650 mg Heparin Sodium (Porcine) (Heparin) 5,000 units SC Q8 [facility] Last Admin: 03/19/17 21:28 Dose: 5,000 units Hydromorphone HCl (Dilaudid) 1 mg IVP Q3H PRN PRN Reason: Pain, severe (8-10) Last Admin: 03/19/17 21:17 Dose: 1 mg Lactated Ringer's (Lactated Ringer's) 1,000 mls @ 120 mls/hr IV .Q8H20M [facility] Last Admin: 03/19/17 15:56 Dose: Not Given Ceftriaxone Sodium 1 gm/ (Sodium Chloride) 100 mls @ 100 mls/hr IVPB Q12H [facility] Last Admin: 03/19/17 16:37 Dose: 100 mls/hr Metronidazole (Flagyl) 500 mg in 100 mls @ 100 mls/hr IVPB Q8H [facility] Last Admin: 03/19/17 16:39 Dose: 100 mls/hr Ondansetron HCl (Zofran Inj) 4 mg IVP Q4H PRN PRN Reason: Nausea/Vomiting Last Admin: 03/18/17 15:45 Dose: 4 mg Pantoprazole Sodium (Protonix Inj) 40 mg IVP DAILY [facility] Last Admin: 03/19/17 09:43 Dose: 40 mg Trazodone HCl (Desyrel) 100 mg PO HS [facility] Last Admin: 03/19/17 21:32 Dose: 100 mg - Labs Labs: 03/19/17 08:03 03/19/17 08:03 PT 13.1 SECONDS (9.7-12.2) H 03/15/17 15:54 INR 1.2 03/15/17 15:54 APTT 32 SECONDS (21-34) 03/15/17 15:54 - Constitutional Appears: Non-toxic, No Acute Distress - ENT Exam ENT Exam: Mucous Membranes Moist - Respiratory Exam Respiratory Exam: absent: Accessory Muscle Use, Respiratory Distress - Cardiovascular Exam Cardiovascular Exam: REGULAR RHYTHM. absent: Tachycardia - GI/Abdominal Exam GI & Abdominal Exam: Soft, Tenderness (incisions c/d/i). absent: Distended, Firm, Guarding, Rigid - Neurological Exam Neurological Exam: Alert, Awake, Oriented x3 Assessment and Plan - Assessment and Plan (Free Text) Assessment: 51F POD#4 s/p lap myra Plan: clear for d/c from surgery clear to shower no heavy lifting 4-6 weeks f/u in office with Dr Pat next week will d/w Dr Bi Trujillo, PGY3
[2017-03-20] MEDS: metroNIDAZOLE IV 500 mg/100 ml 500 MG/100 ML BAG IVPB SCH ×3 (01:33→17:54)
[2017-03-20] MEDS: Lactated Ringer's 1,000 ML IV SCH ×3 (01:37→09:48)
[2017-03-20 06:36] LABS: BASO # 0.1 K/uL (0.0-0.2); BASO % 0.7 % (0.0-2.0); EOS # 0.1 K/uL (0.0-0.7); EOS % 0.6 % (0.0-4.0); LYMPH % 17.9 % (20.0-40.0); MEAN CORPUSCULAR HGB CONC 33.8 g/dL (33.0-37.0); MEAN PLATELET VOLUME 7.4 fL (7.2-11.7); MONO # 0.8 K/uL (0.0-0.8); MONO % 6.6 % (0.0-10.0); NEUT # 8.5 K/uL (1.8-7.0); NEUT % 74.2 % (50.0-75.0); RBC 3.35 Mil/uL (3.80-5.20); RED CELL DISTRIBUTION WIDTH 12.9 % (11.5-14.5); WHITE BLOOD COUNT 11.4 K/uL (4.8-10.8)
[2017-03-20 06:57] LABS: ALB/GLOB RATIO 0.9 (1.0-2.1); ALBUMIN 2.8 g/dL (3.5-5.0); ALT/SGPT 32 U/L (9-52); AST/SGOT 30 U/L (14-36); BLOOD UREA NITROGEN 4 mg/dL (7-17); CALCIUM 8.2 mg/dl (8.6-10.4); GFR AFRICAN-AMERICAN > 60; GFR NON-AFRICAN AMERICAN > 60
--- NOTE | 2017-03-20 07:49 | CP.PCM.PN ---
Subjective - Date & Time of Evaluation Date of Evaluation: 03/20/17 Time of Evaluation: 07:47 - Subjective Subjective: PGY-[address] Cruz's service: Pt seen and examined at bedside. Nursing reports no acute events overnight. Patient reports abdominal pain improved today. She reports passing flatus and having BM this morning. She denies fevers/chills, episodes of nausea/vomiting, sob, chest pains. She is asking when she can go home. Objective - Vital Signs/Intake and Output Vital Signs (last 24 hours): Temp Pulse Resp BP Pulse Ox 98.4 F 102 H 20 124/79 95 03/20/17 00:00 03/20/17 00:00 03/20/17 00:00 03/20/17 00:00 03/20/17 00:00 Intake and Output: 03/20/17 03/20/17 06:59 18:59 Intake Total 2410 Output Total 515 Balance 1895 - Medications Medications: Current Medications Acetaminophen (Tylenol 325mg Tab) 650 mg PO Q6 PRN PRN Reason: Headache Last Admin: 03/19/17 20:01 Dose: 650 mg Heparin Sodium (Porcine) (Heparin) 5,000 units SC Q8 [facility] Last Admin: 03/20/17 05:02 Dose: 5,000 units Hydromorphone HCl (Dilaudid) 1 mg IVP Q3H PRN PRN Reason: Pain, severe (8-10) Last Admin: 03/20/17 05:00 Dose: 1 mg Lactated Ringer's (Lactated Ringer's) 1,000 mls @ 120 mls/hr IV .Q8H20M [facility] Last Admin: 03/20/17 05:05 Dose: 120 mls/hr Ceftriaxone Sodium 1 gm/ (Sodium Chloride) 100 mls @ 100 mls/hr IVPB Q12H [facility] Last Admin: 03/20/17 04:35 Dose: 100 mls/hr Metronidazole (Flagyl) 500 mg in 100 mls @ 100 mls/hr IVPB Q8H [facility] Last Admin: 03/20/17 01:33 Dose: 100 mls/hr Ondansetron HCl (Zofran Inj) 4 mg IVP Q4H PRN PRN Reason: Nausea/Vomiting Last Admin: 03/20/17 02:51 Dose: 4 mg Pantoprazole Sodium (Protonix Inj) 40 mg IVP DAILY [facility] Last Admin: 03/19/17 09:43 Dose: 40 mg Trazodone HCl (Desyrel) 100 mg PO HS [facility] Last Admin: 03/19/17 21:32 Dose: 100 mg - Labs Labs: 03/20/17 06:22 03/20/17 06:22 PT 13.1 SECONDS (9.7-12.2) H 03/15/17 15:54 INR 1.2 03/15/17 15:54 APTT 32 SECONDS (21-34) 03/15/17 15:54 - Additional Findings Additional findings: - Constitutional Appears: No Acute Distress - Head Exam Head Exam: ATRAUMATIC, NORMOCEPHALIC - Eye Exam Eye Exam: EOMI, Normal appearance, PERRL - ENT Exam ENT Exam: Mucous Membranes Moist - Respiratory Exam Respiratory Exam: Clear to Ausculation Bilateral, NORMAL BREATHING PATTERN. absent: Rales, Rhonchi, Wheezes, Stridor - Cardiovascular Exam Cardiovascular Exam: REGULAR RHYTHM, +S1, +S2 - GI/Abdominal Exam GI & Abdominal Exam: Soft, Tenderness (only surgical site), Normal Bowel Sounds. absent: Distended TIMA drain - minimal drainage - Extremities Exam Extremities Exam: Normal Inspection. absent: Calf Tenderness, Tenderness - Neurological Exam Neurological Exam: Alert, Awake, Oriented x3 - Psychiatric Exam Psychiatric exam: Normal Affect, Normal Mood - Skin Skin Exam: Dry, Intact, Normal Color, Warm Assessment and Plan - Assessment and Plan (Free Text) Plan: 1. Cholecystitis * Admit to med/surg * Continue to monitor CBC * Gen surgery consult, Dr. Pat * s/p lap cholecystectomy on 03/16/[address] Pat * US ABD (03/15/17): Immobile gallstone at GB neck. Positive sono aguillon sign. No GB wall thickening or pericholecystic edema. (see full report) * From prior admission: * CT A/P (03/09/17) Distended gallbladder. Common bile duct prominence pancreatic head. Evaluation regarding any potential pancreatic masses -no gross appreciated. No gross calculi in common bile duct appreciated. Follow-up recommended -initial right upper quadrant ultrasound attention to gallbladder common bile duct and pancreatic head recommended. Additional CT pancreatic protocol subsequent imaging -to be determined Medications: * Tylenol 975mg PO Q6H PRN (fever) * Dilaudid 0.5mg IV Q4H PRN (moderate pain) * LR @ 120mls/hr * Flagyl 500mg IV Q8H IV (Start 03/15/17) * Ceftriaxone 1gm Q12H IV (Start 03/15/17) * Zofran 4mg IV Q4H PRN Pre-op labs: * Coags WNL * EKG:nsr@77 * Chest x-ray- no active pulmonary disease 2. Abnormal UA * UA (03/15/17): Positive nitrate, many bacteria, Sq epithelial * Pt on ceftriaxone for cholecystitis * urine culture: no growth 3. Thrombocytosis * Resolved, 383 on 03/17/17 * Mild 534 on presentation, believed reactionary to infection * Continue to Monitor 4. Depression * Continue home Trazadone 5. Anxiety * Continue Home Buspar 6. Degenerative disc disease/Scoliosis * Pt on dilaudid for abd pain * Monitor 7. Prophylaxis * Hepain 5000sc * SCDs * Protonix 40mg IV daily * PT/OT * Heat Treater Head referral * Encouraged OOB, ambulation, and IS Disposition: Marked for discharge with surgical approval. Discussed with Dr. Cruz.
[2017-03-20 16:40] VITALS: BP 125/79; PULSE 93; TEMP 98.2; O2SAT 95
--- NOTE | 2017-03-20 17:42 | CP.PCM.DIS ---
Provider - Provider Date of Admission: 03/15/17 17:28 Attending physician: Ciaran Cruz Jr, MD Primary care physician: Nancy Consults: Surgery: Bi Time Spent in preparation of Discharge (in minutes): 35 Diagnosis - Discharge Diagnosis (1) Cholecystitis Status: Acute Comment: see hospital course (2) UTI (urinary tract infection) Status: Acute Comment: Ceftriaxone over course. Symptoms resolved. Hospital Course - Lab Results Lab Results: Micro Results 03/16/17 Unknown Urine,Clean Catch Urine Culture - Final No Growth (<1,000 CFU/ML) Most Recent Lab Values WBC 11.4 K/uL (4.8-10.8) H 03/20/17 06:22 RBC 3.35 Mil/uL (3.80-5.20) L 03/20/17 06:22 Hgb 9.0 g/dL (11.0-16.0) L 03/20/17 06:22 Hct 26.8 % (34.0-47.0) L 03/20/17 06:22 MCV 80.0 fL (81.0-99.0) L 03/20/17 06:22 MCH 27.0 pg (27.0-31.0) 03/20/17 06:22 MCHC 33.8 g/dL (33.0-37.0) 03/20/17 06:22 RDW 12.9 % (11.5-14.5) 03/20/17 06:22 Plt Count 407 K/uL (130-400) H 03/20/17 06:22 MPV 7.4 fL (7.2-11.7) 03/20/17 06:22 Neut % (Auto) 74.2 % (50.0-75.0) 03/20/17 06:22 Lymph % (Auto) 17.9 % (20.0-40.0) L 03/20/17 06:22 [place] % (Auto) 6.6 % (0.0-10.0) 03/20/17 06:22 Eos % (Auto) 0.6 % (0.0-4.0) 03/20/17 06:22 Baso % (Auto) 0.7 % (0.0-2.0) 03/20/17 06:22 Neut # 8.5 K/uL (1.8-7.0) H 03/20/17 06:22 Lymph # 2.0 K/uL (1.0-4.3) 03/20/17 06:22 [place] # 0.8 K/uL (0.0-0.8) 03/20/17 06:22 Eos # 0.1 K/uL (0.0-0.7) 03/20/17 06:22 Baso # 0.1 K/uL (0.0-0.2) 03/20/17 06:22 PT 13.1 SECONDS (9.7-12.2) H 03/15/17 15:54 INR 1.2 03/15/17 15:54 APTT 32 SECONDS (21-34) 03/15/17 15:54 Sodium 135 mmol/L (132-148) 03/20/17 06:22 Potassium 3.6 mmol/L (3.6-5.2) 03/20/17 06:22 Chloride 101 mmol/L (98-107) 03/20/17 06:22 Carbon Dioxide 27 mmol/L (22-30) 03/20/17 06:22 Anion Gap 10 (10-20) 03/20/17 06:22 BUN 4 mg/dL (7-17) L 03/20/17 06:22 Creatinine 0.5 mg/dL (0.7-1.2) L 03/20/17 06:22 Est GFR ( Amer) > 60 03/20/17 06:22 Est GFR (Non-Af Amer) > 60 03/20/17 06:22 Random Glucose 117 mg/dL (65-105) H 03/20/17 06:22 Calcium 8.2 mg/dl (8.6-10.4) L 03/20/17 06:22 Phosphorus 4.1 mg/dL (2.5-4.5) 03/16/17 06:34 Magnesium 1.7 mg/dL (1.6-2.3) 03/16/17 06:34 Total Bilirubin 0.2 mg/dL (0.2-1.3) 03/20/17 06:22 Direct Bilirubin 0.3 mg/dL (0.0-0.4) 03/15/17 15:54 AST 30 U/L (14-36) 03/20/17 06:22 ALT 32 U/L (9-52) 03/20/17 06:22 Alkaline Phosphatase 47 U/L (38-126) 03/20/17 06:22 Total Protein 5.9 g/dL (6.3-8.3) L 03/20/17 06:22 Albumin 2.8 g/dL (3.5-5.0) L 03/20/17 06:22 Globulin 3.1 gm/dL (2.2-3.9) 03/20/17 06:22 Albumin/Globulin Ratio 0.9 (1.0-2.1) L 03/20/17 06:22 Lipase 110 U/L (23-300) 03/15/17 15:54 Urine Color Yellow (YELLOW) 03/15/17 15:54 Urine Clarity Hazy (Clear) 03/15/17 15:54 Urine pH 8.0 (5.0-8.0) 03/15/17 15:54 Ur Specific [place] 1.014 (1.003-1.030) 03/15/17 15:54 Urine Protein Negative mg/dL (NEGATIVE) 03/15/17 15:54 Urine Glucose (UA) Normal mg/dL (Normal) 03/15/17 15:54 Urine Ketones Trace mg/dL (NEGATIVE) 03/15/17 15:54 Urine Blood Negative (NEGATIVE) 03/15/17 15:54 Urine Nitrate Positive (NEGATIVE) H 03/15/17 15:54 Urine Bilirubin Negative (NEGATIVE) 03/15/17 15:54 Urine Urobilinogen Normal mg/dL (0.2-1.0) 03/15/17 15:54 Ur Leukocyte Esterase Neg Celia/uL (Negative) 03/15/17 15:54 Urine WBC (Auto) 1 /hpf (0-5) 03/15/17 15:54 Urine RBC (Auto) 3 /hpf (0-3) 03/15/17 15:54 Ur Squamous Epith Cells 10 /hpf (0-5) H 03/15/17 15:54 Urine Bacteria Many (<OCC) H 03/15/17 15:54 Urine HCG, Qual Negative (NEGATIVE) 03/16/17 04:40 - Hospital Course Hospital Course: On admission: Patient is a 51 year old female, with PMHx of cholelithiasis, anxiety, depression, DDD, and scoliosis, who presents to [facility] ED c/o RUQ pain. Patient states that pain began one week ago, starting in her epigastric area than spreading to her RUQ. At that time, she vomited yellow-green fluid "three to four times with no blood." When the pain did not cease she came to [facility] ED on 03/09/17. Pt reports having CT which showed "distended gallbladder" and was diagnosed with constipation, given morphine and stool softeners, and discharged. Since discharge, pt has had worsening non-radiating RUQ pain, "10/10 " in severity, that skedmond describes as a "twisting sensation" that "comes and goes." Pain is made worse with eating, especially fatty foods, but now all foods are intolerable. Patient denies any sick contacts. Patient denies having any fever, nausea, and vomiting. Hospital course: Pt admitted on 03.15.17. US/CT showing distended gallbaladder, with immobile gallstone at neck of GB. Surgical consult, with Dr Rubio requested. Prior to surgery pre-op labs/imaging/EKG were checked and pt started on Ceftriaxone/ Flagyl IV antibiotics. Pt found to have UTI and was concomitantly on Ceftriaxone for cholecystitis. Cholecystectomy performed on 03/16/[address] Pat. Over course pt was monitored post-surgery. Her pain decreased over course as did N/V. Lucas drain with decreased output. Pt discharged on 03/20/17 with instructions to follow up with Dr. Cruz, and Dr. Pat for removal of drain. Pt discharged on short course of toradol for lingering pain. Pts home meds were continued over course for Anxiety, depression. - Date & Time of H&P Date of H&P: 03/15/17 Time of H&P: 20:58 Discharge Exam - Additional Findings Additional findings: - Constitutional Appears: No Acute Distress - Head Exam Head Exam: ATRAUMATIC, NORMOCEPHALIC - Eye Exam Eye Exam: EOMI, Normal appearance, PERRL - ENT Exam ENT Exam: Mucous Membranes Moist - Respiratory Exam Respiratory Exam: Clear to Ausculation Bilateral, NORMAL BREATHING PATTERN. absent: Rales, Rhonchi, Wheezes, Stridor - Cardiovascular Exam Cardiovascular Exam: REGULAR RHYTHM, +S1, +S2 - GI/Abdominal Exam GI & Abdominal Exam: Soft, Tenderness (only surgical site), Normal Bowel Sounds. absent: Distended TIMA drain - minimal drainage - Extremities Exam Extremities Exam: Normal Inspection. absent: Calf Tenderness, Tenderness - Neurological Exam Neurological Exam: Alert, Awake, Oriented x3 - Psychiatric Exam Psychiatric exam: Normal Affect, Normal Mood - Skin Skin Exam: Dry, Intact, Normal Color, Warm Discharge Plan - Discharge Medications Prescriptions: Ketorolac Tromethamine [Toradol] 10 mg PO Q6H PRN #10 tab PRN Reason: Pain, Moderate (4-7) - Follow Up Plan Condition: GOOD Disposition: HOME/ ROUTINE Patient education suggested?: Yes Instructions: Cholecystitis (DC), Cholecystitis (GEN), Constipation (DC), Constipation (GEN), Urinary Tract Infection in Women (DC), Urinary Tract Infection in Men (DC), Depression (DC), Dysuria (GEN) Additional Instructions: Pt stable for discharge per Dr. Cruz Pt will be discharged with no prescriptions. She may resume her other home medications. Pt should follow up with her PMD, Dr. Cruz, within one week's time. She should also follow up in Dr. Pat's office, her surgeon, within one week from discharge for drain removal. His office is listed below. She has been advised by surgical team to not lift heavy objects (over 10lbs) for the next 4-6 weeks. She should return to the ED if symptoms return or worsen. Pt verbalized understanding to these instructions and agreed. Prescribed medications: Toradol Dr. Pat Office [address] [facility] [id number]
[2017-03-20] MEDS ORDERED: Pneumococcal 23-Valent Vaccine IM ONE (18:12)
== END 2017-03-20 19:35 | disposition home or self-care (01) | DRG 493 ==
LOC: C.ER 13:09 → C.9E 17:28 → C.3T 18:41
PROVIDERS: ADMIT Internal Medicine; ATTEND Internal Medicine
PROC: BF101ZZ Fluoroscopy of Bile Ducts using Low Osmolar Contrast (ICD-10-PCS; 2017-03-16)
PROC: 0FT44ZZ Resection of Gallbladder, Percutaneous Endoscopic Approach (ICD-10-PCS; principal; 2017-03-16 15:30)
DX: K80.00 Calculus of gallbladder with acute cholecystitis without obstruction (principal); N39.0 Urinary tract infection, site not specified; M41.9 Scoliosis, unspecified; F41.9 Anxiety disorder, unspecified; F32.9 Major depressive disorder, single episode, unspecified; E78.00 Pure hypercholesterolemia, unspecified; Z79.899 Other long term (current) drug therapy